=== PATIENT | female | born 1985 | race Caucasian/White ===

== ENCOUNTER → 2016-05-02 | Outpatient (CLI) | payer OTHER ==
[~2016-05-02] MED LIST: ALPR-411 PO; CARB1TAB38 PO; HYDR50CA2 PO; ONDA4TAB10 SL; ONDA4TAB46 PO
--- NOTE | 2016-05-03 17:58 | MOTOR CONDUCTION ---
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 EEG DIAGNOSIS: Essentially normal during wakefulness. DESCRIPTION OF TRACING: This EEG was done in the laboratory after the patient had 6 hours of sleep. A simultaneous video analysis of patient movement and behavior was obtained. Photic stimulation was performed. Hyperventilation was not. Drowsiness and light sleep are not recorded. Under these conditions, there is evidence for what appears to be normal background rhythm in the alpha range of up to 9-10 Hz of maximum frequency and of up to 40 microvolts of maximum amplitude. This is maximum posterior head regions bilaterally symmetrical. Polymorphic mid frequency theta activity of modest voltage is seen over all head regions without clear focal or regional predominance. Anterior head region maximum bilaterally symmetrical low voltage fast activity in the beta range is present. Photic stimulation provokes a modest driving response without a photomyogenic or photoparoxysmal component. At no time during the waking tracing is there evidence for potentially epileptogenic activity in the form of polyspike or spike wave bursts, focal sharp waves or focal spikes. INTERPRETATION: This electroencephalogram is essentially normal during wakefulness without evidence for focal or generalized encephalopathy and without evidence for potentially epileptogenic activity but the absence of the latter does not exclude the diagnosis of seizure disorder.
== END | disposition home or self-care (01) ==
LOC: C.NEUR 13:32
PROVIDERS: ATTEND Psychiatry & Neurology Neurology
DX: G40.109 Localization-related (focal) (partial) symptomatic epilepsy and epileptic syndromes with simple partial seizures, not intractable, without status epilepticus (principal)

== ENCOUNTER 2016-05-31 13:58 | Emergency (ER) | payer OTHER ==
[~2016-05-31] VITALS: Ht 165.1 cm; Wt 84.9 kg
[2016-05-31 14:14] VITALS: TEMP 37.2; Ht 165.1 cm; Wt 84.9 kg
[2016-05-31] MEDS ORDERED: SODIUM CHLORIDE 0.9% 1000ML 1,000 ML IV STA ×2 (14:36→15:58)
[2016-05-31] MEDS ORDERED: ONDANSETRON INJ 2 MG/ML 2 ML VIAL IV STA ×2 (14:36→18:02)
[2016-05-31 15:20] LABS: BASO % 0.1 %; BASO ABS # 0.01 K/uL (0-0.2); COMPLETE YES; EOS % 0.8 %; HEMATOCRIT 48.6 % (37-47); IG% 0.2 %; LYMPH ABS # 0.98 K/uL (1.2-3.4); MEAN CELL VOLUME 85.3 fL (80-100); MEAN CORPUSCULAR HEMOGLOBIN 30.5 pg (25-34); MEAN CORPUSCULAR HGB CONC 35.8 g/dl (32-36); MEAN PLATELET VOLUME 10.8 fL (7.4-10.4); MONO % 7.3 %; NEUT % 80.6 %; PLATELET COUNT 177 K/uL (130-400); WHITE BLOOD COUNT 8.91 K/uL (4.8-10.8)
--- NOTE | 2016-05-31 15:20 | EMERGENCY ROOM VISIT NOTE ---
History First contact with patient: 14:19 Chief Complaint: ABDOMINAL PAIN Stated Complaint: ABDOMINAL PAIN,VOMITTING,DIARRHEA, DIZZY History of Present Illness The patient is a 31 year old female who presents to the Emergency Room with complaints of nausea, vomiting, diarrhea, abdominal pain, cough and congestion for the past 3 days. She reports associated chills and fever up to 102 earlier today for which she took ibuprofen. She describes the diarrhea as watery, nonbloody, 9-10 times per hour, and worsened by any oral intake. She states she only had vomiting for the first day, but has remained very nauseated with some dry heaving yesterday and today, and is able to keep down some fluids. 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 She also reports history of frequent sinus infections and so she was treated for pneumonia 2 months ago with a Z-Eric. She denies any recent out of country travel, undercooked poultry or meats, well water or stream water intake. Review of Systems GENERAL: + fevers, chills, malaise. Denies weight loss. HEENT: Denies dizziness, visual problems, hearing loss, tinnitus. Denies difficulty swallowing or oral lesions. PULMONARY: + cough, congestion, dark green sputum. Denies, shortness of breath, or hemoptysis. CARDIOVASCULAR: Denies chest pain, palpitations, dyspnea on exertion, orthopnea or peripheral edema. GASTROINTESTINAL: + diarrhea, nausea, vomiting, abdominal pain. Denies hematochezia, bloody or bilious emesis, constipation. GENITOURINARY: Denies dysuria, frequency, urgency or nocturia. NEUROLOGIC: + history of epilepsy, Denies history of CVA, TIA or chronic headaches. MUSCULOSKELETAL: Denies history of joint tenderness/swelling. SKIN: Denies rashes or lesions. PSYCHIATRIC: Denies history of depression or mental illness. ENDOCRINE: Denies history of diabetes, thyroid disorders, abnormal hair growth or sexual dysfunction. HEMATOLOGIC: Social History Smoking Status: Current Some Day Smoker Current/Historical Medications Scheduled Carbamazepine Extended Release (Tegretol Xr), 400 MG PO TID Ondasetron Odt (Zofran Odt), 4 MG SL Q6H Allergies Coded Allergies: Acetaminophen (Unverified Allergy, Unknown, unknown, 05/31/16) Baclofen (Unverified Allergy, Unknown, unknown, 05/31/16) Chlorhexidine (Unverified Allergy, Unknown, unknown, 05/31/16) Gabapentin (Unverified Allergy, Unknown, unknown, 05/31/16) Penicillins (Unverified Allergy, Unknown, unknown, 05/31/16) Sulfa Antibiotics (Unverified Allergy, Unknown, unknown, 05/31/16) Tizanidine (Unverified Allergy, Unknown, unknown, 05/31/16) Physical Exam Vital Signs Date Time Temp Pulse Resp B/P Pulse Ox O2 Delivery O2 Flow Rate FiO2 05/31/16 18:05 96 20 111/72 98 Room Air 05/31/16 16:09 98 20 108/68 98 Room Air 05/31/16 14:14 37.2 116 18 110/75 98 Room Air Physical Exam CONSTITUTIONAL: Well appearing and well nourished. Moderately dehydrated. Alert and oriented X 4 with normal affect. HEENT: Normocephalic, atraumatic. Pupils equal, round and reactive to light, EOMI. TMs normal. Mucus membranes dry. NECK: Supple, full active range of motion without discomfort. RESPIRATORY: Clear to auscultation bilaterally with no wheezing, crackles, rhonchi or stridor. Equal expansion bilaterally. CARDIOVASCULAR: Tachycardia. Regular rhythm with no murmurs, rubs or gallops. Normal peripheral perfusion. No edema. GASTROINTESTINAL: Soft, nondistended. Mild diffuse tenderness in all quadrants , no rebound. Hyperactive bowel sounds. MUSCULOSKELETAL: Full range of motion of all joints without discomfort. INTEGUMENTARY: No rash or other significant dermatologic conditions noted. NEUROLOGIC: Cranial nerves II-XII grossly intact. No focal neurologic deficits noted. Medical Decision & Procedures ER Provider Diagnostic Interpretation: CHEST 2 VIEWS ROUTINE CLINICAL HISTORY: Cough and fever. COMPARISON STUDY: No previous studies for comparison. FINDINGS: Lung volumes are normal. Lungs are clear. There is no pneumothorax or pleural effusion. Cardiac size is normal. Mediastinal contours are normal. There is no evidence of pulmonary edema. IMPRESSION: No acute cardiopulmonary findings. Laboratory Results 05/31/16 14:10 Red Blood Count 5.70, Mean Corpuscular Volume 85.3, Mean Corpuscular Hemoglobin 30.5, Mean Corpuscular Hemoglobin Concent 35.8, Mean Platelet Volume 10.8, Neutrophils (%) (Auto) 80.6, Lymphocytes (%) (Auto) 11.0, Monocytes (%) (Auto) 7.3, Eosinophils (%) (Auto) 0.8, Basophils (%) (Auto) 0.1, Neutrophils # (Auto) 7.18, Lymphocytes # (Auto) 0.98, Monocytes # (Auto) 0.65, Eosinophils # (Auto) 0.07, Basophils # (Auto) 0.01 05/31/16 14:10 Test 05/31/16 14:10 05/31/16 17:15 White Blood Count 8.91 K/uL (4.8-10.8) Red Blood Count 5.70 M/uL (4.2-5.4) Hemoglobin 17.4 g/dL (12.0-16.0) Hematocrit 48.6 % (37-47) Mean Corpuscular Volume 85.3 fL (80-100) Mean Corpuscular Hemoglobin 30.5 pg (25-34) Mean Corpuscular Hemoglobin Concent 35.8 g/dl (32-36) Platelet Count 177 K/uL (130-400) Mean Platelet Volume 10.8 fL (7.4-10.4) Neutrophils (%) (Auto) 80.6 % Lymphocytes (%) (Auto) 11.0 % Monocytes (%) (Auto) 7.3 % Eosinophils (%) (Auto) 0.8 % Basophils (%) (Auto) 0.1 % Neutrophils # (Auto) 7.18 K/uL (1.4-6.5) Lymphocytes # (Auto) 0.98 K/uL (1.2-3.4) Monocytes # (Auto) 0.65 K/uL (0.11-0.59) Eosinophils # (Auto) 0.07 K/uL (0-0.5) Basophils # (Auto) 0.01 K/uL (0-0.2) RDW Standard Deviation 37.9 fL (36.4-46.3) RDW Coefficient of Variation 12.1 % (11.5-14.5) Immature Granulocyte % (Auto) 0.2 % Immature Granulocyte # (Auto) 0.02 K/uL (0.00-0.02) Anion Gap 6.0 mmol/L (3-11) Est Creatinine Clear Calc Drug Dose 96.2 ml/min Estimated GFR () 96.8 Estimated GFR (Non- 83.6 BUN/Creatinine Ratio 15.3 (10-20) Calcium Level 8.5 mg/dl (8.5-10.1) Total Bilirubin 0.3 mg/dl (0.2-1) Direct Bilirubin 0.1 mg/dl (0-0.2) Aspartate Amino Transf (AST/SGOT) 22 U/L (15-37) Alanine Aminotransferase (ALT/SGPT) 30 U/L (12-78) Alkaline Phosphatase 87 U/L (45-117) Total Protein 8.0 gm/dl (6.4-8.2) Albumin 4.1 gm/dl (3.4-5.0) Lipase 134 U/L (73-393) Urine Color DK YELLOW Urine Appearance CLEAR (CLEAR) Urine pH 5.5 (4.5-7.5) Urine Specific [place] 1.037 (1.000-1.030) Urine Protein 2+ (NEG) Urine Glucose (UA) NEG (NEG) Urine Ketones TRACE (NEG) Urine Occult Blood NEG (NEG) Urine Nitrite NEG (NEG) Urine Bilirubin NEG (NEG) Urine Urobilinogen NEG (NEG) Urine Leukocyte Esterase TRACE (NEG) Urine WBC (Auto) 1-5 /hpf (0-5) Urine RBC (Auto) 0-4 /hpf (0-4) Urine Hyaline Casts (Auto) 1-5 /lpf (0-5) Urine Epithelial Cells (Auto) >30 /lpf (0-5) Urine Bacteria (Auto) NEG (NEG) Urine Renal Epithelial Cells /lpf (0-5) Urine Pathogenic Casts /lpf (0) Urine Mucus PRESENT (NONE PRSENT) Urine Test NEG (NEG) Medications Administered Medications (Trade) Dose Ordered Sig/Debora Route Start Time Stop Time Status Last Admin Dose Admin Sodium Chloride (Nss 1000ml) 1,000 ml @ 999 mls/hr Q1H1M STAT IV 05/31/16 14:36 05/31/16 15:36 DC 05/31/16 15:30 999 MLS/HR Ondansetron HCl 4 mg 4 mg NOW STAT IV 05/31/16 14:36 05/31/16 14:42 DC 05/31/16 15:31 4 MG Sodium Chloride (Nss 1000ml) 1,000 ml @ 999 mls/hr Q1H1M STAT IV 05/31/16 15:58 05/31/16 16:58 DC 05/31/16 16:08 999 MLS/HR Ketorolac Tromethamine (Toradol Inj) 15 mg NOW STAT IV 05/31/16 18:02 05/31/16 18:04 DC 05/31/16 18:16 15 MG Ondansetron HCl (Zofran Inj) 4 mg NOW STAT IV 05/31/16 18:02 05/31/16 18:04 DC 05/31/16 18:16 4 MG Medical Decision Patient does appear moderately dehydrated on exam, with dry mucous membranes and is tachycardic. Labs show polycythemia and high specific gravity on UA with some ketones, also supporting some dehydration. Labs are otherwise unremarkable. Treated with IV Zofran for nausea, and 2 L of normal saline fluid bolus, with improvement in symptoms. She then has been asking for medication for headache, states she has previously been treated with Dilaudid and Toradol for migraines. I explained to her that Dilaudid was not an appropriate medication to treat headaches, but I did offer her a dose of Toradol prior to discharge, which she accepted. Patient improved after interventions, tolerating PO. Patient updated on all results and plan for discharge, instructed to follow up closely with her PCP, she verbalized understanding. Rx for PRN Zofran sent to pharmacy. Patient discussed with the attending physician, who agrees with my assessment and disposition. Impression Primary Impression: Dehydration, moderate Additional Impression: Nausea, vomiting, and diarrhea Departure Information Dispostion Home / Self-Care Condition GOOD Prescriptions Ondasetron Odt (ZOFRAN ODT) 4 Mg Tab 4 MG SL Q6H for Nausea, #6 TAB Prov: Alyssa Paredes CRNP 05/31/16 Referrals No Doctor, Assigned (PCP) Patient Instructions ED Dehydration, ED Food Poison Or Gastroenteritis, [facility] Additional Instructions Follow-up with her PCP in the next few days. Drink plenty of fluids to stay well hydrated. You may take the Zofran as needed for severe nausea/vomiting. He may take Tylenol or ibuprofen as needed for pain. Please return to the ER for worsening symptoms, including severe abdominal pain , vomiting blood, blood in the stool, severe dizziness or passing out, persistent fevers/chills, or any other concerns. Work Instructions Return To Work: 3 days Lifting Limitations: none Problem Qualifiers
[2016-05-31] MEDS ORDERED: CARB400T3 PO (15:33)
[2016-05-31 15:39] LABS: BUN/CREATININE RATIO 15.3 (10-20); CALCIUM 8.5 mg/dl (8.5-10.1); CREATININE 0.92 mg/dl (0.60-1.20)
--- NOTE | 2016-05-31 16:20 | DIAGNOSTIC IMAGING REPORT ---
CHEST 2 VIEWS ROUTINE CLINICAL HISTORY: Cough and fever. COMPARISON STUDY: No previous studies for comparison. FINDINGS: Lung volumes are normal. Lungs are clear. There is no pneumothorax or pleural effusion. Cardiac size is normal. Mediastinal contours are normal. There is no evidence of pulmonary edema. IMPRESSION: No acute cardiopulmonary findings. Electronically signed by: Lawrence Bhardwaj M.D. 05/31/2016 4:18 PM Dictated Date/Time: 05/31/2016 4:17 PM
[2016-05-31] MEDS ORDERED: KETOROLAC TROMETHAMINE 30 MG/ML VIAL IV STA (18:02)
[2016-05-31 18:05] VITALS: BP 111/72; PULSE 96; O2SAT 98
[2016-05-31 18:05] LABS: URINE APPEARANCE CLEAR (CLEAR); URINE COLOR DK YELLOW; URINE EPITHELIAL CELL AUTO >30 /lpf (0-5); URINE NITRITE NEG (NEG); URINE PH 5.5 (4.5-7.5); URINE SPECIFIC GRAVITY 1.037 (1.000-1.030); UROBILINOGEN NEG (NEG); ZZUR CULT IF INDIC CLEAN CATCH NO
[2016-05-31 18:06] LABS: MANUAL MICROSCOPIC REQUIRED? NO; REVIEW REQ? YES
[2016-05-31 18:08] LABS: URINE BILIRUBIN NEG (NEG)
[2016-05-31] MEDS ORDERED: ONDA4TAB10 SL (18:12)
[2016-05-31 18:14] LABS: URINE MUCUS PRESENT (NONE PRSENT)
[2016-06-07 10:21] LABS: O&P SOURCE OTHER-STOOL
== END 2016-05-31 18:30 | disposition home or self-care (01) ==
LOC: C.EDB 14:00
DX: E86.0 Dehydration (principal); R11.2 Nausea with vomiting, unspecified; R19.7 Diarrhea, unspecified; F17.210 Nicotine dependence, cigarettes, uncomplicated

== ENCOUNTER 2016-08-28 16:51 | Emergency (ER) | payer OTHER ==
[~2016-08-28] VITALS: Ht 165.1 cm; Wt 91.0 kg
[~2016-08-28 16:51] MED LIST changes: -ALPR-411 PO; -HYDR50CA2 PO; -ONDA4TAB46 PO
[2016-08-28 17:03] VITALS: TEMP 37; Ht 165.1 cm; Wt 91.0 kg
[2016-08-28] MEDS ORDERED: ONDANSETRON 8 MG/54 ML D5W IV STA (17:39)
[2016-08-28] MEDS ORDERED: SODIUM CHLORIDE 0.9% 1000ML 1,000 ML IV STA ×2 (17:39→20:37)
[2016-08-28 17:50] LABS: BASO % 0.1 %; BASO ABS # 0.01 K/uL (0-0.2); COMPLETE YES; EOS % 1.4 %; HEMATOCRIT 43.5 % (37-47); IG% 0.2 %; LYMPH % 7.5 %; LYMPH ABS # 0.78 K/uL (1.2-3.4); MEAN CORPUSCULAR HEMOGLOBIN 30.4 pg (25-34); MEAN CORPUSCULAR HGB CONC 35.4 g/dl (32-36); MEAN PLATELET VOLUME 10.4 fL (7.4-10.4); MONO % 4.1 %; NEUT % 86.7 %; PLATELET COUNT 210 K/uL (130-400); RED BLOOD COUNT 5.06 M/uL (4.2-5.4); WHITE BLOOD COUNT 10.37 K/uL (4.8-10.8)
[2016-08-28] MEDS ORDERED: ALPR-411 PO (17:52)
[2016-08-28] MEDS ORDERED: HYDR50CA2 PO (17:52)
[2016-08-28] MEDS ORDERED: DiphenhydrAMINE HCL 50 MG/ML VIAL IV STA (18:07)
[2016-08-28 18:09] LABS: BUN/CREATININE RATIO 22.3 (10-20); CALCIUM 8.5 mg/dl (8.5-10.1); CREATININE 0.88 mg/dl (0.60-1.20); POTASSIUM 4.1 mmol/L (3.5-5.1)
[2016-08-28 18:12] LABS: ALB/GLOB RATIO 1.2 (0.9-2)
--- NOTE | 2016-08-28 18:12 | DIAGNOSTIC IMAGING REPORT ---
PA CHEST WITH ABDOMINAL SERIES CLINICAL HISTORY: Nausea and vomiting. Diarrhea. FINDINGS: A PA chest radiograph is compared to study dated 05/31/2016. The cardiomediastinal silhouette is unremarkable. The lungs and pleural spaces are clear. No pneumothorax is seen. The bony thorax is grossly intact. Supine and erect abdominal radiographs are obtained. No prior studies are available for comparison at the time of dictation. Cholecystectomy clips are identified in the right upper quadrant. There is a nonobstructed abdominal bowel gas pattern. No evidence of intraperitoneal free air is seen. There are no abnormal abdominal calcifications. An intrauterine device is noted in the pelvis. Pelvic phleboliths are observed. The lumbosacral spine and bony pelvis appear intact. IMPRESSION: 1. No active disease in the chest. 2. Nonobstructed abdominal bowel gas pattern. Electronically signed by: Flo Mai M.D. 08/28/2016 6:10 PM Dictated Date/Time: 08/28/2016 6:09 PM
[2016-08-28 18:24] LABS: PREG INTERNAL NEGATIVE QC NEG CLEAR BACKGROUND; PREG INTERNAL POSITIVE QC POS CONTROL LINE
[2016-08-28] MEDS ORDERED: ACETAMINOPHEN 500 MG TAB PO STA (18:34)
[2016-08-28] MEDS ORDERED: KETOROLAC TROMETHAMINE 30 MG/ML VIAL IV STA (18:47)
[2016-08-28 19:07] LABS: URINE APPEARANCE CLEAR (CLEAR); URINE BILIRUBIN NEG (NEG); URINE COLOR YELLOW; URINE NITRITE NEG (NEG); URINE SPECIFIC GRAVITY 1.027 (1.000-1.030); UROBILINOGEN NEG (NEG); ZZUR CULT IF INDIC CLEAN CATCH NO
[2016-08-28 19:10] LABS: MANUAL MICROSCOPIC REQUIRED? NO; REVIEW REQ? NO
--- NOTE | 2016-08-28 19:11 | EMERGENCY ROOM VISIT NOTE ---
History Report prepared by Tami: Mathew Shepard Under the Supervision of: Dr. Hiwot Perea D.O. First contact with patient: 17:28 Chief Complaint: DIARRHEA Stated Complaint: BIG BITE/STING - NAUSEA, VOMITING,DIARREHA,DIZZY Nursing Triage Summary: Patient states she was stung by an insect yesterday states "I felt like my whole body was on fire" Patient having n/v/d all day today. Patient also c/o chills and headache History of Present Illness The patient is a 31 year old female who presents to the Emergency Room with complaints of a persistent illness beginning yesterday. She states that her symptoms began after she was bit by a bug yesterday on her left foot. She has a history of allergic reactions to bee stings and feels that she may have been stung by a bee. The patient's symptoms include vomiting, diarrhea, fatigue, weakness, chills, generalized itchiness, body pain, and headache. She states that she experienced chest pain and mild shortness of breath immediately following the bite yesterday. She has taken Benadryl for her symptoms. The patient denies any recent travel, straining, or injury. She notes that her son is in daycare and had an episode of vomiting a few days ago. She states that her symptoms felt somewhat different from a usual allergic reaction as her primary symptom associated with her previous allergic reactions is swelling of various body parts. Nothing has improved her symptoms. The patient states that she used a test today because she thought she may be . Source of History: patient Onset: Yesterday Quality: other (illness) Timing: other (persistent) Modifying Factors (Relieving): other (none) Associated Symptoms: + chills, + headache, + chest pain (resolved), + SOB ( resolved), + vomiting, + diarrhea, + weakness Note: The patient's symptoms include generalized itchiness, and body pain. Review of Systems See HPI for pertinent positives & negatives. A total of 10 systems reviewed and were otherwise negative. Past Medical & Surgical Medical Problems: (1) No Known Active Medical Problems Surgical Problems: (1) S/P cholecystectomy Family History No pertinent family history stated. Social History Smoking Status: Former Smoker Housing Status: lives with family Current/Historical Medications Scheduled Carbamazepine Extended Release (Tegretol Xr), 200 MG PO TID Hydroxyzine Pamoate (Vistaril), 50 MG PO HS Scheduled PRN Alprazolam (Xanax), 0.5 MG PO BID PRN for Anxiety/Agitation Ondansetron Hcl (Zofran), 4 MG PO Q8H PRN for Nausea Allergies Coded Allergies: Acetaminophen (Unverified Allergy, Unknown, unknown, 08/28/16) Baclofen (Unverified Allergy, Unknown, unknown, 08/28/16) Chlorhexidine (Unverified Allergy, Unknown, unknown, 08/28/16) Gabapentin (Unverified Allergy, Unknown, unknown, 08/28/16) Penicillins (Unverified Allergy, Unknown, unknown, 08/28/16) Sulfa Antibiotics (Unverified Allergy, Unknown, unknown, 08/28/16) Tizanidine (Unverified Allergy, Unknown, unknown, 08/28/16) Physical Exam Vital Signs Date Time Temp Pulse Resp B/P (MAP) Pulse Ox O2 Delivery O2 Flow Rate FiO2 08/28/16 22:20 81 18 115/68 99 08/28/16 20:40 82 18 109/64 98 Room Air 08/28/16 19:00 77 18 127/71 97 Room Air 08/28/16 17:03 37.0 83 20 128/80 96 Room Air Physical Exam GENERAL: alert, well appearing, well nourished, no distress, non-toxic EYE EXAM: normal conjunctiva, PERRL and EOM's grossly intact OROPHARYNX: no exudate, no erythema, lips, buccal mucosa, and tongue normal and mucous membranes are dry NECK: supple, no nuchal rigidity, no adenopathy, non-tender LUNGS: Clear to auscultation. Normal chest wall mechanics HEART: no murmurs, S1 normal and S2 normal ABDOMEN: abdomen soft, normo-active bowel sounds, no masses, no rebound or guarding. Mild generalized tenderness. BACK: Back is symmetrical on inspection and there is no deformity, no midline tenderness, no CVA tenderness. SKIN: no rashes and no bruising UPPER EXTREMITIES: upper extremities are grossly normal. LOWER EXTREMITIES: No pitting edema. Small sub-centimeter erythematous papules consistent with insect bites on her feet bilaterally. No signs of cellulitis, or ascending lymphangitis. No evidence of abscess. NEURO EXAM: Normal sensorium, cranial nerves II-XII grossly intact, normal speech, no gross weakness of arms, no gross weakness of legs. Medical Decision & Procedures ER Provider Diagnostic Interpretation: Radiology results have been interpreted by the radiologist and reviewed by me. PA CHEST WITH ABDOMINAL SERIES FINDINGS: A PA chest radiograph is compared to study dated 05/31/2016. The cardiomediastinal silhouette is unremarkable. The lungs and pleural spaces are clear. No pneumothorax is seen. The bony thorax is grossly intact. Supine and erect abdominal radiographs are obtained. No prior studies are available for comparison at the time of dictation. Cholecystectomy clips are identified in the right upper quadrant. There is a nonobstructed abdominal bowel gas pattern. No evidence of intraperitoneal free air is seen. There are no abnormal abdominal calcifications. An intrauterine device is noted in the pelvis. Pelvic phleboliths are observed. The lumbosacral spine and bony pelvis appear intact. IMPRESSION: 1. No active disease in the chest. 2. Nonobstructed abdominal bowel gas pattern. Electronically signed by: Flo Mai M.D. Laboratory Results 08/28/16 17:35 Red Blood Count 5.06, Mean Corpuscular Volume 86.0, Mean Corpuscular Hemoglobin 30.4, Mean Corpuscular Hemoglobin Concent 35.4, Mean Platelet Volume 10.4, Neutrophils (%) (Auto) 86.7, Lymphocytes (%) (Auto) 7.5, Monocytes (%) (Auto) 4.1, Eosinophils (%) (Auto) 1.4, Basophils (%) (Auto) 0.1, Neutrophils # (Auto) 8.98, Lymphocytes # (Auto) 0.78, Monocytes # (Auto) 0.43, Eosinophils # (Auto) 0.15, Basophils # (Auto) 0.01 08/28/16 17:35 Test 08/28/16 17:35 08/28/16 17:38 08/28/16 18:36 08/28/16 18:52 White Blood Count 10.37 K/uL (4.8-10.8) Red Blood Count 5.06 M/uL (4.2-5.4) Hemoglobin 15.4 g/dL (12.0-16.0) Hematocrit 43.5 % (37-47) Mean Corpuscular Volume 86.0 fL (80-100) Mean Corpuscular Hemoglobin 30.4 pg (25-34) Mean Corpuscular Hemoglobin Concent 35.4 g/dl (32-36) Platelet Count 210 K/uL (130-400) Mean Platelet Volume 10.4 fL (7.4-10.4) Neutrophils (%) (Auto) 86.7 % Lymphocytes (%) (Auto) 7.5 % Monocytes (%) (Auto) 4.1 % Eosinophils (%) (Auto) 1.4 % Basophils (%) (Auto) 0.1 % Neutrophils # (Auto) 8.98 K/uL (1.4-6.5) Lymphocytes # (Auto) 0.78 K/uL (1.2-3.4) Monocytes # (Auto) 0.43 K/uL (0.11-0.59) Eosinophils # (Auto) 0.15 K/uL (0-0.5) Basophils # (Auto) 0.01 K/uL (0-0.2) RDW Standard Deviation 37.8 fL (36.4-46.3) RDW Coefficient of Variation 12.0 % (11.5-14.5) Immature Granulocyte % (Auto) 0.2 % Immature Granulocyte # (Auto) 0.02 K/uL (0.00-0.02) Anion Gap 8.0 mmol/L (3-11) Est Creatinine Clear Calc Drug Dose 104.2 ml/min Estimated GFR () 102.2 Estimated GFR (Non- 88.2 BUN/Creatinine Ratio 22.3 (10-20) Calcium Level 8.5 mg/dl (8.5-10.1) Total Bilirubin 0.6 mg/dl (0.2-1) Aspartate Amino Transf (AST/SGOT) 16 U/L (15-37) Alanine Aminotransferase (ALT/SGPT) 24 U/L (12-78) Alkaline Phosphatase 65 U/L (45-117) Total Protein 7.6 gm/dl (6.4-8.2) Albumin 4.2 gm/dl (3.4-5.0) Globulin 3.4 gm/dl (2.5-4.0) Albumin/Globulin Ratio 1.2 (0.9-2) Lipase 142 U/L (73-393) Human Chorionic Gonadotropin, Qual NEG (NEG) Lactic Acid Level 1.0 mmol/L (0.4-2.0) Urine Color YELLOW Urine Appearance CLEAR (CLEAR) Urine pH 6.0 (4.5-7.5) Urine Specific [place] 1.027 (1.000-1.030) Urine Protein NEG (NEG) Urine Glucose (UA) NEG (NEG) Urine Ketones NEG (NEG) Urine Occult Blood NEG (NEG) Urine Nitrite NEG (NEG) Urine Bilirubin NEG (NEG) Urine Urobilinogen NEG (NEG) Urine Leukocyte Esterase NEG (NEG) Laboratory results per my review. Medications Administered Medications (Trade) Dose Ordered Sig/Debora Route Start Time Stop Time Status Last Admin Dose Admin Sodium Chloride 1,000 ml @ 999 mls/hr Q1H1M STAT IV 08/28/16 17:39 08/28/16 18:39 DC 08/28/16 17:39 999 MLS/HR Ondansetron HCl (Zofran 8mg Iv) 8 mg NOW STAT IV 08/28/16 17:39 08/28/16 17:41 DC 08/28/16 17:47 8 MG Diphenhydramine HCl (Benadryl Inj) 25 mg NOW STAT IV 08/28/16 18:07 08/28/16 18:08 DC 08/28/16 18:14 25 MG Ketorolac Tromethamine (Toradol Inj) 30 mg NOW STAT IV 08/28/16 18:47 08/28/16 18:48 DC 08/28/16 19:01 30 MG Dicyclomine HCl (Bentyl Tab) 20 mg NOW STAT PO 08/28/16 20:10 08/28/16 20:12 DC 08/28/16 20:35 20 MG Promethazine HCl 12.5 mg/Sodium Chloride 50.5 ml @ 204 mls/hr NOW STAT IV 08/28/16 20:10 08/28/16 20:24 DC 08/28/16 20:41 204 MLS/HR Sodium Chloride 1,000 ml @ 999 mls/hr Q1H1M STAT IV 08/28/16 20:37 08/28/16 21:37 DC 08/28/16 20:49 999 MLS/HR ED Course 1731: The patient was evaluated in room C4. A complete history and physical exam was performed. 1739: Ordered Zofran 8 mg IV, Sodium Chloride 1000 ml @ 999 mls/hr IV. 1807: Ordered Benadryl Inj 25 mg IV. 1833: Ordered Tylenol Tab 1000 mg PO. 1846: Ordered Toradol Inj 30 mg IV. 1935: I reassessed the patient. She is still feeling nauseous. 2009: Ordered Promethazine HCl 12.5/Sodium Chloride 50.5 ml @ 204 mls/hr IV, Bentyl Tab 20 mg PO. 2036: Ordered Sodium Chloride 1000 ml @ 999 mls/hr IV. 2204: Upon reevaluation, the patient is feeling better. I discussed the findings and the treatment plan with the patient. She verbalizes agreement and understanding. She was discharged home. Medical Decision Differential diagnosis: Etiologies such as gastroenteritis, food borne illness, infections, appendicitis , diverticulitis, inflammatory bowel disease, obstruction, GI bleed, biliary pathology, as well as others were entertained. Symptoms today more likely related to viral syndrome and sick contacts. I do not suspect the patient's GI symptoms today were related to a minor bite on the foot yesterday. Patient with no other symptoms of systemic allergic reaction. Doubt anaphylaxis. Patient improved here and had no episodes here vomiting and diarrhea. Labs reassuring, and imaging reassuring, did not feel patient warranted additional abdominal imaging at this time given improvement in condition. Patient with mild persistent nausea but was tolerating by mouth by time of discharge and felt improved enough to go home. Did not feel patient had a significant envenomation as a result of what appear to be mild and typical insect bites to her toes bilaterally. Doubt additional GI pathology including perforation, GI bleed, mesenteric ischemia, bowel obstruction, colitis. Patient's vital signs reassuring. Patient well-appearing at time of discharge. [place] Drug Monitoring Program Search Results: patient reviewed within database, no issues identified, see additional documentation Drug Monitoring Findings: The patient had one prescription for Xanax this month. Medication Reconcilliation Current Medication List: was personally reviewed by me Blood Pressure Screening Patient's blood pressure: Elevated blood pressure Blood pressure disposition: Elevated BP felt to be situational Impression Primary Impression: Vomiting and diarrhea Additional Impressions: Dehydration Insect bite Scribe Attestation The scribe's documentation has been prepared under my direction and personally reviewed by me in its entirety. I confirm that the note above accurately reflects all work, treatment, procedures, and medical decision making performed by me. Departure Information Dispostion Home / Self-Care Prescriptions Ondansetron Hcl (ZOFRAN) 4 Mg Tab 4 MG PO Q8H Y for Nausea, #20 TAB Prov: Brit Hiwot S., DO 08/28/16 Referrals No Doctor, Assigned (PCP) Patient Instructions My [facility] Additional Instructions Please continue regular medications as prescribed. Please sip clear liquids at frequent intervals to stay well-hydrated. Please eat a bland diet as tolerated until you're feeling better. You may use the nausea medication as prescribed. Please continue to monitor the area of your prior inset bite for any changes including increased redness, swelling, or pain. If you develop any recurrent vomiting or diarrhea, develop fevers, redness or swelling from the area of insect bite, dizziness or feel as though you're going to pass out, or you have any other new or concerning symptoms, please return the emergency room. Problem Qualifiers Additional Impressions: Insect bite Encounter type: initial encounter Qualified Codes: W57.XXXA - Bitten or stung by nonvenomous insect and other nonvenomous arthropods, initial encounter
[2016-08-28] MEDS ORDERED: DICYCLOMINE HCL 20 MG TAB PO STA (20:10)
[2016-08-28] MEDS ORDERED: PROMETHAZINE HCL INJ 12.5 MG in SODIUM CHLORIDE 0.9% 50ML 50 ML IV STA (20:10)
[2016-08-28] MEDS ORDERED: ONDA4TAB46 PO (21:10)
[2016-08-28 22:20] VITALS: BP 115/68; PULSE 81; O2SAT 99
== END 2016-08-28 22:20 | disposition home or self-care (01) ==
LOC: C.EDB 16:54 → C.EDC 22:20
DX: R11.10 Vomiting, unspecified (principal); R19.7 Diarrhea, unspecified; E86.0 Dehydration; S90.862A Insect bite (nonvenomous), left foot, initial encounter; W57.XXXA Bitten or stung by nonvenomous insect and other nonvenomous arthropods, initial encounter; Z79.899 Other long term (current) drug therapy; Z87.891 Personal history of nicotine dependence

== ENCOUNTER 2017-01-15 08:53 | Emergency (ER) | payer OTHER ==
[~2017-01-15] VITALS: Ht 165.1 cm; Wt 94.0 kg
[~2017-01-15 08:53] MED LIST changes: +ALPR-411 PO; -CARB1TAB38 PO; +CARB400T3 PO; +HYDR50CA2 PO; -ONDA4TAB10 SL; +ONDA4TAB46 PO
[2017-01-15 08:55] VITALS: TEMP 37; Ht 165.1 cm; Wt 94.0 kg
[2017-01-15 09:29] LABS: URINE APPEARANCE CLOUDY (CLEAR); URINE COLOR DK YELLOW; URINE EPITHELIAL CELL AUTO >30 /lpf (0-5); URINE NITRITE NEG (NEG); URINE PH 5.5 (4.5-7.5); URINE SPECIFIC GRAVITY 1.042 (1.000-1.030); UROBILINOGEN NEG (NEG)
[2017-01-15 09:30] LABS: MANUAL MICROSCOPIC REQUIRED? NO; REVIEW REQ? NO
[2017-01-15 09:31] LABS: URINE BILIRUBIN NEG (NEG)
[2017-01-15] MEDS ORDERED: CARB1CAP3 PO (09:35)
[2017-01-15] MEDS ORDERED: IBUP-1428 PO (09:35)
[2017-01-15] MEDS ORDERED: METH-307 PO ×2 (09:35→12:57)
[2017-01-15] MEDS ORDERED: ONDANSETRON INJ 2 MG/ML 2 ML VIAL IV STA ×2 (10:08→12:29)
[2017-01-15] MEDS ORDERED: KETOROLAC TROMETHAMINE 30 MG/ML VIAL IV STA (10:08)
[2017-01-15] MEDS ORDERED: MoRPHine SULFATE 4 MG/ML 1 ML CARP\\VIAL IV STA (10:08)
--- NOTE | 2017-01-15 11:38 | DIAGNOSTIC IMAGING REPORT ---
L-SPINE MIN 4 VIEWS ROUTINE CLINICAL HISTORY: 31 years-old Female presenting with EVAL BACK/LEG PAIN. TECHNIQUE: Frontal, bilateral oblique, lateral, and lateral views of the lumbar spine were obtained. COMPARISON: Plain radiographs of the abdomen from 08/28/2016. FINDINGS: No scoliosis. Normal lumbar lordosis. Vertebral bodies maintain normal height and alignment. Mild intervertebral disc height loss suggested at L5-S1. The remainder of the intervertebral disc spaces are preserved. No advanced degenerative change. No radiographic evidence of compression fracture or subluxation. No gross evidence of osseous neural foraminal narrowing. No pars defect is radiographically apparent. Moderate stool burden. Cholecystectomy clips. IMPRESSION: 1. Mild intervertebral disc height loss suggested at L5-S1. Otherwise normal lumbar spine. 2. Moderate stool burden, which suggests constipation. Electronically signed by: [place] Grady M.D. 01/15/2017 11:37 AM Dictated Date/Time: 01/15/2017 11:34 AM
[2017-01-15] MEDS ORDERED: MoRPHine SULFATE 10 MG/ML CARP/VIAL IV STA (12:27)
[2017-01-15] MEDS ORDERED: DEXAMETHASONE SOD INJ 4 MG/ML VIAL IV STA (12:27)
[2017-01-15] MEDS ORDERED: HYDR-5688 PO (12:57)
[2017-01-15] MEDS ORDERED: METH4PAK PO (12:57)
[2017-01-15] MEDS ORDERED: IBUP-1451 PO (12:57)
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
[2017-01-15 13:27] VITALS: BP 109/69; PULSE 68; O2SAT 99
[2017-01-15] MEDS ORDERED: OXYC1TAB3 PO (13:36)
== END 2017-01-15 13:46 | disposition home or self-care (01) ==
LOC: C.EDB 08:55 → C.EDA 13:46
DX: M54.16 Radiculopathy, lumbar region (principal); Z90.49 Acquired absence of other specified parts of digestive tract

== ENCOUNTER → 2017-01-24 | Outpatient (CLI) | payer OTHER ==
[~2017-01-24] MED LIST changes: -ALPR-411 PO; +CARB1CAP3 PO; -CARB400T3 PO; +IBUP-1428 PO; +IBUP-1451 PO; +METH-307 PO; +METH4PAK PO; -ONDA4TAB46 PO; +OXYC1TAB3 PO
--- NOTE | 2017-01-24 15:01 | DIAGNOSTIC IMAGING REPORT ---
MRI LUMBAR SPINE W/O CONTRAST CLINICAL HISTORY: CHRONIC LOW BACK PAIN,HX OF HERNIATED DISCS TECHNIQUE: Sagittal and axial T1, T2 and STIR images were obtained. COMPARISON STUDY: Conventional radiographic study dated 01/15/2017 OBSERVATIONS: The vertebral bodies and posterior elements appear intact. There is no abnormal bony signal present to suggest a marrow replacement process. L1-2: No disc protrusions or extrusions. No evidence of spinal canal or neural foraminal compromise. L2-3: There is a small left paracentral disc protrusion with mild deformity of the anterior thecal sac. There is no significant foraminal narrowing L3-4: There is a mild circumferential disc bulge. There is no significant spinal or foraminal stenosis L4-5: There is an annular fissure. There is a tiny central disc protrusion. There is no significant spinal or foraminal stenosis. L5-S1: There is a small to moderate central disc protrusion. There is minimal deformity anterior thecal sac. There is no significant foraminal narrowing The conus medullaris and cauda equina appear normal. IMPRESSION: 1. Small left paracentral disc protrusion at the L2-3 level with mild secondary deformity of thecal sac 2. Tiny central disc protrusion at the L4-5 level 3. Small to moderate central disc protrusion at the L5-S1 level with minimal secondary deformity of the thecal sac. Electronically signed by: Byron Segura M.D. 01/24/2017 3:00 PM Dictated Date/Time: 01/24/2017 2:55 PM
== END | disposition home or self-care (01) ==
LOC: C.MRI 13:27
PROVIDERS: ATTEND Internal Medicine
DX: M54.41 Lumbago with sciatica, right side (principal); R93.7 Abnormal findings on diagnostic imaging of other parts of musculoskeletal system

== ENCOUNTER 2017-02-25 10:16 | Emergency (ER) | payer OTHER ==
[~2017-02-25] VITALS: Ht 165.1 cm; Wt 104.5 kg
[~2017-02-25 10:16] MED LIST changes: -METH4PAK PO
[2017-02-25] MEDS ORDERED: KETOROLAC TROMETHAMINE 30 MG/ML VIAL IV STA (11:11)
[2017-02-25] MEDS ORDERED: SODIUM CHLORIDE 0.9% 1000ML 1,000 ML IV STA ×2 (11:11→13:03)
[2017-02-25] MEDS ORDERED: ALBUT/IPRATROP 3MG/0.5MG NEB 3 ML VIAL INH STA (11:11)
[2017-02-25 11:16] VITALS: Ht 165.1 cm; Wt 104.5 kg
--- NOTE | 2017-02-25 11:29 | EMERGENCY ROOM VISIT NOTE ---
History First contact with patient: 11:02 Chief Complaint: FLU LIKE SX Stated Complaint: SOB W DIFFICULTY, EAR /FACE PAIN,FATIGUE, FEVER, I History of Present Illness The patient is a 31 year old female who presents to the Emergency Room with complaints of flulike symptoms including cough, congestion, headaches and body aches, fevers and chills. She states her symptoms started 3 days ago but got worse yesterday into today. She has been taking ibuprofen for her symptoms with some relief, last dose was early this morning. She reports that her cough has been bothering her the most today, she feels chest tightness and like it is hard to breathe, and states this is similar to previous episodes of bronchitis, to which she states she is prone. She is a former smoker, quit 1 year ago. She reports a history of asthma as a child, and states she sometimes has issues with asthma-like symptoms when she gets sick, but does not take any medications or inhalers on a routine basis. She denies any vision changes, sore throat, ear pain, neck pain or stiffness, difficulty swallowing, abdominal pain, nausea or vomiting, diarrhea, bloody or black stools, urinary symptoms, abnormal vaginal bleeding or discharge, or rash. Review of Systems A complete 10 point review of systems was reviewed with the patient with pertinent positives and negatives as per history of present illness. All else were negative. Past Medical/Surgical History Medical Problems: (1) Asthma (2) Dehydration (3) Dehydration, moderate (4) Insect bite (5) Nausea, vomiting, and diarrhea (6) No Known Active Medical Problems (7) Vomiting and diarrhea Surgical Problems: (1) S/P cholecystectomy Social History Smoking Status: Former Smoker Housing Status: lives with family Current/Historical Medications Scheduled Carbamazepine (Tegretol Xr), 400 MG PO TID Hydroxyzine Pamoate (Vistaril), 50 MG PO HS Prednisone (Prednisone), 50 MG PO DAILY Scheduled PRN Ibuprofen Tab (Motrin), 800 MG PO TIDM PRN for Pain Methocarbamol (Robaxin), 750 MG PO TID PRN for Muscle Spasms Allergies Reviewed in chart Physical Exam Vital Signs Date Time Temp Pulse Resp B/P (MAP) Pulse Ox O2 Delivery O2 Flow Rate FiO2 02/25/17 15:05 37.2 85 15 138/69 97 02/25/17 14:40 138/69 02/25/17 14:11 85 15 97 02/25/17 13:41 88 16 100 02/25/17 13:11 72 99 02/25/17 13:06 114/55 02/25/17 12:43 82 22 98 Room Air 02/25/17 12:21 83 17 100 02/25/17 12:16 78 16 97 02/25/17 12:06 128/77 02/25/17 11:59 139/91 02/25/17 11:56 97 Room Air 02/25/17 11:52 97 Room Air 02/25/17 11:46 83 20 02/25/17 11:28 70 02/25/17 11:27 122/73 02/25/17 10:30 37.2 74 20 144/82 98 Room Air Physical Exam CONSTITUTIONAL: Pleasant and cooperative. No acute distress, but appears uncomfortable on exam. Mildly dehydrated, but otherwise well appearing and well nourished. HEENT: Normocephalic, atraumatic. Pupils equal, round and reactive to light, EOMI. TMs normal. Pharynx normal. Tacky mucous membranes. NECK: Supple, full active range of motion without discomfort. RESPIRATORY: Inspiratory and neck 3 wheezing throughout the lungs on auscultation, diminished in the bases. No crackles, rhonchi or stridor. Able to speak in full sentences. Not tachypneic. No use of accessory muscles. Equal expansion bilaterally. CARDIOVASCULAR: Regular rate and rhythm with no murmurs, rubs or gallops. Normal peripheral perfusion. No edema. GASTROINTESTINAL: Soft, nontender, nondistended. No palpable masses or HSM. Bowel sounds present in all quadrants. MUSCULOSKELETAL: Full range of motion of all joints without discomfort. INTEGUMENTARY: No rash or other significant dermatologic conditions noted. NEUROLOGIC: Alert and oriented X 4 with normal affect. Cranial nerves II-XII grossly intact. No focal neurologic deficits noted. Normal strength and sensation in all 4 extremities. Normal speech. Normal gait observed. Medical Decision & Procedures ER Provider Diagnostic Interpretation: CHEST 2 VIEWS ROUTINE HISTORY: 31 years-old Female EVALUATE RESPIRATORY DISTRESS.DYSPNEA acute respiratory distress COMPARISON: Acute abdominal series radiographs 08/28/2016 TECHNIQUE: PA and lateral views of the chest FINDINGS: Cardiomediastinal and hilar silhouettes are within normal limits. No pneumothorax, pleural effusion, focal airspace consolidation or overt pulmonary edema. Bones of the chest appear grossly intact. Cholecystectomy clips noted. IMPRESSION: No acute process. Laboratory Results 02/25/17 11:50 Red Blood Count 4.61, Mean Corpuscular Volume 85.9, Mean Corpuscular Hemoglobin 29.7, Mean Corpuscular Hemoglobin Concent 34.6, Mean Platelet Volume 10.6, Neutrophils (%) (Auto) 56.0, Lymphocytes (%) (Auto) 30.4, Monocytes (%) (Auto) 7.4, Eosinophils (%) (Auto) 5.8, Basophils (%) (Auto) 0.2, Neutrophils # (Auto) 4.50, Lymphocytes # (Auto) 2.45, Monocytes # (Auto) 0.60, Eosinophils # (Auto) 0.47, Basophils # (Auto) 0.02 02/25/17 11:50 Test 02/25/17 11:50 White Blood Count 8.06 K/uL (4.8-10.8) Red Blood Count 4.61 M/uL (4.2-5.4) Hemoglobin 13.7 g/dL (12.0-16.0) Hematocrit 39.6 % (37-47) Mean Corpuscular Volume 85.9 fL (80-100) Mean Corpuscular Hemoglobin 29.7 pg (25-34) Mean Corpuscular Hemoglobin Concent 34.6 g/dl (32-36) Platelet Count 188 K/uL (130-400) Mean Platelet Volume 10.6 fL (7.4-10.4) Neutrophils (%) (Auto) 56.0 % Lymphocytes (%) (Auto) 30.4 % Monocytes (%) (Auto) 7.4 % Eosinophils (%) (Auto) 5.8 % Basophils (%) (Auto) 0.2 % Neutrophils # (Auto) 4.50 K/uL (1.4-6.5) Lymphocytes # (Auto) 2.45 K/uL (1.2-3.4) Monocytes # (Auto) 0.60 K/uL (0.11-0.59) Eosinophils # (Auto) 0.47 K/uL (0-0.5) Basophils # (Auto) 0.02 K/uL (0-0.2) RDW Standard Deviation 38.0 fL (36.4-46.3) RDW Coefficient of Variation 12.2 % (11.5-14.5) Immature Granulocyte % (Auto) 0.2 % Immature Granulocyte # (Auto) 0.02 K/uL (0.00-0.02) Anion Gap 6.0 mmol/L (3-11) Est Creatinine Clear Calc Drug Dose 126.5 ml/min Estimated GFR () 118.2 Estimated GFR (Non- 102.0 BUN/Creatinine Ratio 16.7 (10-20) Calcium Level 8.5 mg/dl (8.5-10.1) Total Bilirubin 0.3 mg/dl (0.2-1) Aspartate Amino Transf (AST/SGOT) 18 U/L (15-37) Alanine Aminotransferase (ALT/SGPT) 30 U/L (12-78) Alkaline Phosphatase 75 U/L (45-117) Total Protein 7.0 gm/dl (6.4-8.2) Albumin 3.6 gm/dl (3.4-5.0) Globulin 3.4 gm/dl (2.5-4.0) Albumin/Globulin Ratio 1.1 (0.9-2) Medications Administered Medications (Trade) Dose Ordered Sig/Debora Route Start Time Stop Time Status Last Admin Dose Admin Albuterol/ Ipratropium (Duoneb) 3 ml NOW STAT INH 02/25/17 11:11 02/25/17 11:15 DC 02/25/17 11:58 3 ML Sodium Chloride 1,000 ml @ 999 mls/hr Q1H1M STAT IV 02/25/17 11:11 02/25/17 12:11 DC 02/25/17 11:56 999 MLS/HR Ketorolac Tromethamine (Toradol Inj) 15 mg NOW STAT IV 02/25/17 11:11 02/25/17 11:15 DC 02/25/17 11:57 15 MG Lorazepam (Ativan Inj) 0.5 mg NOW STAT IV 02/25/17 12:28 02/25/17 12:29 DC 02/25/17 12:56 0.5 MG Albuterol/ Ipratropium (Duoneb) 12 ml ONE ONCE INH 02/25/17 12:30 02/25/17 12:31 DC 02/25/17 12:42 12 ML Sodium Chloride 1,000 ml @ 999 mls/hr Q1H1M STAT IV 02/25/17 13:03 02/25/17 14:03 DC 02/25/17 13:10 999 MLS/HR Albuterol (Ventolin Hfa Inhaler) 2 puffs NOW ONCE INH 02/25/17 14:30 02/25/17 14:31 DC 02/25/17 14:52 2 PUFFS Prednisone (PredniSONE TAB) 60 mg NOW STAT PO 02/25/17 14:28 02/25/17 14:31 DC 02/25/17 14:50 60 MG ECG Indication: chest pain Rate (beats per minute): 75 Rhythm: normal sinus Findings: no acute ischemic change, no ectopy Comparison ECG Date: no prior available Medical Decision CC: Patient presenting with complaint of flulike symptoms, cough and shortness of breath Interpretation of Labs: No leukocytosis, no anemia, no significant electrolyte abnormalities, normal renal function, normal liver enzymes. Differential Diagnosis: Includes, but not limited to influenza, viral URI, bronchitis, pneumonia, asthma exacerbation, COPD, dehydration, electrolyte abnormality, anxiety, among others. Medication Reconciliation: I attest that I have personally reviewed the patient' s current medication list. Initial vital signs review: I reviewed the patient's vital signs and interpret them as follows: T: Afebrile; BP: Hypertensive; HR: Within normal limits; RR : Within normal limits; Pulse Ox: Within normal limits on room air. Blood pressure screening: The patient was found to have an elevated blood pressure, this was felt to be situational. Summary: Patient was evaluated at bedside, history and physical exam performed. Patient is alert and oriented, no acute distress, but does appear uncomfortable throughout exam. She also complains of feeling anxious and is tearful at times. She is huddled under several blankets on the stretcher. She is noted to be afebrile at this time. Mildly dehydrated on exam. On lung exam, the patient has diffuse inspiratory next 20 wheezes throughout, diminished in the bases. Orders were placed at bedside for labs, UA and urine , IV fluids for hydration, DuoNeb treatment for wheezing, chest x-ray to evaluate for pneumonia. Patient discussed with Dr. Rodas, who agrees with my assessment and plan. Labs reviewed as above, no acute abdomen is. Patient did not provide a urine sample. Chest x-ray reviewed, no acute abnormalities, specifically no pneumonia. Nursing staff did notify me that the patient was feeling increasingly anxious, asking for something to treat this. She is also complaining of chest pain and a worsening headache. Nursing staff performed an EKG due to the complaint of chest pain, I reviewed this and it shows NSR with no acute ischemic changes by my read. I reexamined the patient. Her lungs sound slightly improved after the DuoNeb, however she continues to have diffuse wheezing. Hour-long neb ordered and she was given a dose of oral prednisone. IV Ativan was ordered for the patient's anxiety, and comfort measures including cool compresses, turning down the lights, turning off the TV, and asking visitors to leave. Patient reassessed multiple times throughout ED stay, she reports her symptoms are much improved after IV fluids and medications, her anxiety is also much better. Her headache and chest pain are also resolved after ativan. Her wheezing is much improved, and she is breathing more comfortably. Sats remain within normal limits. Patient was provided with an albuterol inhaler and spacer to use at home, she was instructed in its use. Rx for prednisone burst sent to pharmacy. The patient was updated on all results and plan for discharge, she was encouraged to follow closely with her primary care provider for symptoms persist. She was also given strict return precautions should her symptoms worsen in any way, she verbalized understanding. Patient was discharged home in stable condition and ambulatory. Impression Primary Impression: Influenza-like symptoms Additional Impression: Acute bronchitis Departure Information Dispostion Home / Self-Care Condition GOOD Prescriptions Prednisone (Prednisone) 50 Mg Tab 50 MG PO DAILY for 4 Days, #4 TAB Prov: Alyssa Paredes CRNP 02/25/17 Referrals Oneyda Cadena D.O. (PCP) Patient Instructions ED Bronchitis Asthmatic, ED Flu, [facility] Additional Instructions You have been evaluated in the emergency department for your cough, wheezing, and flu-like symptoms. You most likely have influenza or some other viral process that is causing your symptoms. Your symptoms should be improved after 7 -10 days, but may last up to 14 days. A cough from bronchitis may last as long as 4-6 weeks. There is no evidence of pneumonia on your chest x-ray. You have been prescribed prednisone, which is a steroid, to help treat the inflammation in your lungs causing your bronchitis. Take as prescribed. Use the albuterol inhaler with spacer TWO puffs every 4 hours as needed for cough, wheezing, chest tightness. You should also use this before bed to help prevent coughing so that you can sleep better at night. For fevers or pain, you can use the following [id number] medicines (if > 12 yo): - Regular strength (325mg/tab) Tylenol (acetaminophen) 2 tabs every 4-6 hours as needed. Do not exceed 10 tablets in a 24 hour period. Avoid taking more than 3000 mg of Tylenol per day. This includes any other sources of acetaminophen you may take on a regular basis. - Regular strength (200 mg/tab) Advil (ibuprofen) 3 tabs every 6-8 hours as needed. Do not exceed a dose of 2400 mg per day. - For best results, alternate dosing of Tylenol and Advil every 3-4 hours. Drink plenty of fluids to stay well hydrated. - Water is the IDEAL replacement for lost fluids. You should initially sip at the water to help facilitate increased intestinal absorption rate and to decrease the possibility of nausea/vomiting. - Carbohydrate/Electrolyte-Containing Drinks (i.e. Gatorade, Powerade, Pedialyte). All of these are good choices, but it is important to remember that all of these drinks contain a high concentration of sugar. - Popsicles, ice chips, and fruit juices are all other options. - My FAVORITE dehydration remedy is to mix a 1:1 solution of bottled Gatorade with bottled water. This dilution allows for a palatable flavor with added benefit of a reduction in the amount of sugar consumption. As with all Emergency Department visits, you should follow-up with your Primary Care Provider in 2-3 days for reevaluation. Please return to the emergency department for any worsening symptoms, including difficulty breathing, chest pain, coughing up blood, severe dizziness or passing out, confusion, severe headache, or any other concerns. Work Instructions Return To Work: 2 days Problem Qualifiers Additional Impression: Acute bronchitis Bronchitis organism: unspecified organism Qualified Codes: J20.9 - Acute bronchitis, unspecified
[2017-02-25 11:56] VITALS: O2SAT 97
[2017-02-25 12:20] LABS: BASO % 0.2 %; BASO ABS # 0.02 K/uL (0-0.2); EOS % 5.8 %; EOS ABS # 0.47 K/uL (0-0.5); HEMATOCRIT 39.6 % (37-47); HEMOGLOBIN 13.7 g/dL (12.0-16.0); IG# 0.02 K/uL (0.00-0.02); LYMPH % 30.4 %; LYMPH ABS # 2.45 K/uL (1.2-3.4); MEAN CELL VOLUME 85.9 fL (80-100); MEAN CORPUSCULAR HEMOGLOBIN 29.7 pg (25-34); MEAN CORPUSCULAR HGB CONC 34.6 g/dl (32-36); MEAN PLATELET VOLUME 10.6 fL (7.4-10.4); MONO % 7.4 %; PLATELET COUNT 188 K/uL (130-400); RED CELL DISTRIBUTION WIDTH CV 12.2 % (11.5-14.5); WHITE BLOOD COUNT 8.06 K/uL (4.8-10.8)
[2017-02-25] MEDS ORDERED: LORAZEPAM 2 MG/ML 1 ML VIAL IV STA (12:28)
[2017-02-25] MEDS ORDERED: ALBUT/IPRATROP 3MG/0.5MG NEB 3 ML VIAL INH ONE (12:30)
[2017-02-25 12:37] LABS: ALBUMIN 3.6 gm/dl (3.4-5.0); CALCIUM 8.5 mg/dl (8.5-10.1); CREATININE 0.78 mg/dl (0.60-1.20)
[2017-02-25 12:43] VITALS: PULSE 82; O2SAT 98
--- NOTE | 2017-02-25 13:03 | DIAGNOSTIC IMAGING REPORT ---
CHEST 2 VIEWS ROUTINE HISTORY: 31 years-old Female EVALUATE RESPIRATORY DISTRESS.DYSPNEA acute respiratory distress COMPARISON: Acute abdominal series radiographs 08/28/2016 TECHNIQUE: PA and lateral views of the chest FINDINGS: Cardiomediastinal and hilar silhouettes are within normal limits. No pneumothorax, pleural effusion, focal airspace consolidation or overt pulmonary edema. Bones of the chest appear grossly intact. Cholecystectomy clips noted. IMPRESSION: No acute process. The above report was generated using voice recognition software. It may contain grammatical, syntax or spelling errors. Electronically signed by: Ivan Sánchez M.D. 02/25/2017 1:02 PM Dictated Date/Time: 02/25/2017 1:01 PM
[2017-02-25] MEDS ORDERED: ALBUTEROL HFA 8 GM INHALER INH ONE (14:30)
[2017-02-25] MEDS ORDERED: PRED50TA PO (14:39)
[2017-02-25 15:05] VITALS: BP 138/69; PULSE 85; TEMP 37.2; O2SAT 97
--- NOTE | 2017-02-25 18:30 | EMERGENCY ROOM VISIT NOTE ---
ED Visit Note First contact with patient: 11:02 I have personally evaluated and examined this patient. I agree with assessment and plan of Alyssa Paredes NP.
== END 2017-02-25 15:06 | disposition home or self-care (01) ==
LOC: C.EDB 10:18 → C.EDC 15:06
DX: J20.9 Acute bronchitis, unspecified (principal); F41.9 Anxiety disorder, unspecified; Z87.891 Personal history of nicotine dependence

== ENCOUNTER 2017-03-12 14:46 | Emergency (ER) | payer OTHER ==
[~2017-03-12] VITALS: Ht 165.1 cm; Wt 106.0 kg
[~2017-03-12 14:46] MED LIST changes: -IBUP-1428 PO; -OXYC1TAB3 PO
[2017-03-12 14:47] VITALS: TEMP 36.8; Ht 165.1 cm; Wt 106.0 kg
[2017-03-12] MEDS ORDERED: KETOROLAC TROMETHAMINE 30 MG/ML VIAL IV STA (16:08)
[2017-03-12] MEDS ORDERED: HYDROmorphone INJ 2 MG/ML SYR/VIAL IV STA (16:08)
--- NOTE | 2017-03-12 16:17 | EMERGENCY ROOM VISIT NOTE ---
History Report prepared by Tami: Hieu Abarca Under the Supervision of: Dr. Karin Louis D.O. First contact with patient: 15:53 Chief Complaint: BACK PAIN Stated Complaint: BACK PAIN POST CORTISONE SHOT History of Present Illness The patient is a 31 year old female who presents to the Emergency Room with complaints of sharp lower back pain that began several months ago. She rates her pain an 8/10 in severity. She has a past medical history of a herniated disc at L5-S1 and some protruding discs above this area as well. She denies any other known medical problems. Recently, the patient has been following up with pain management clinic and has been receiving Cortisone shots. She received an injection four days ago and states that once the Lidocaine wore off, her pain worsened significantly. She called the pain management clinic who told her it was normal to have some pain after the injection. However, her pain persisted today so she called the clinic again who told her to go to the ER. She states that her pain is radiating down her bilateral hips into her bilateral legs. She has been using Ibuprofen and a muscle relaxer to try to manage her pain. She states that her feet are cold, but denies any other symptoms. Her pain is exacerbated with movement. Source of History: patient Onset: several months ago Position: back (lower) Symptom Intensity: 8/10 Quality: sharp Timing: constant Modifying Factors (Worsening): movement Note: Her pain radiates down bilateral hips into bilateral legs. She notes her feet are cold. She denies any other abnormal symptoms. Review of Systems See HPI for pertinent positives & negatives. A total of 10 systems reviewed and were otherwise negative. Past Medical & Surgical Medical Problems: (1) Asthma (2) Dehydration (3) Dehydration, moderate (4) Insect bite (5) Nausea, vomiting, and diarrhea (6) No Known Active Medical Problems (7) Vomiting and diarrhea Surgical Problems: (1) S/P cholecystectomy Family History Patient reports no known family medical history. Social History Smoking Status: Former Smoker Smokeless Tobacco Use: No Drug Use: none Housing Status: lives with family Occupation Status: employed Current/Historical Medications Scheduled Carbamazepine (Tegretol), 400 MG PO TID Hydroxyzine Pamoate (Vistaril), 50 MG PO HS Scheduled PRN Ibuprofen Tab (Motrin), 800 MG PO TIDM PRN for Pain Methocarbamol (Robaxin), 750 MG PO TID PRN for Muscle Spasms Allergies Coded Allergies: Acetaminophen (Unverified Allergy, Unknown, unknown, 03/12/17) Baclofen (Unverified Allergy, Unknown, unknown, 03/12/17) Chlorhexidine (Unverified Allergy, Unknown, unknown, 03/12/17) Gabapentin (Unverified Allergy, Unknown, unknown, 03/12/17) Penicillins (Unverified Allergy, Unknown, unknown, 03/12/17) Sulfa Antibiotics (Unverified Allergy, Unknown, unknown, 03/12/17) Tizanidine (Unverified Allergy, Unknown, unknown, 03/12/17) Physical Exam Vital Signs Date Time Temp Pulse Resp B/P (MAP) Pulse Ox O2 Delivery O2 Flow Rate FiO2 03/12/17 17:41 66 16 148/62 100 03/12/17 16:34 97 Room Air 03/12/17 16:24 85 18 139/89 100 Room Air 03/12/17 14:47 36.8 84 18 126/82 99 Physical Exam HEENT: Head - normocephalic and atraumatic Pupils are equal, round, and reactive to light. Extraocular eye muscles are intact, and sclera are anicteric. Nose - moist nasal mucosa without discharge. Mouth - moist buccal mucosa. Oropharynx is nonerythematous and there is no tonsillar exudate or edema noted. Neck: Supple; no JVD, nuchal rigidity, cervical lymphadenopathy. Heart: Regular rate and rhythm. There is a normal S1 and S2 with no murmurs, clicks, or gallops appreciated. Lungs: Clear to auscultation bilaterally with no wheezes, rales, or rhonchi. Abdomen: Soft, completely nontender, nondistended, with good bowel sounds. There are no palpable pulsatile masses or hepatosplenomegaly. There is no guarding, rigidity, or rebound noted. Back: Pain to palpation over the entire L-spine. Extremities: No evidence of cyanosis, clubbing, or edema. There are easily palpable peripheral pulses. Normal pedal push and pull. Normal patellar reflexes. Decreased strength with flexion at the hips. Pain to palpation over the right hip. Skin: warm and dry with good turgor and no rashes. Medical Decision & Procedures Laboratory Results 03/12/17 16:15 Red Blood Count 4.90, Mean Corpuscular Volume 87.1, Mean Corpuscular Hemoglobin 30.0, Mean Corpuscular Hemoglobin Concent 34.4, Mean Platelet Volume 10.4, Neutrophils (%) (Auto) 56.3, Lymphocytes (%) (Auto) 35.6, Monocytes (%) (Auto) 5.2, Eosinophils (%) (Auto) 2.2, Basophils (%) (Auto) 0.2, Neutrophils # (Auto) 6.15, Lymphocytes # (Auto) 3.90, Monocytes # (Auto) 0.57, Eosinophils # (Auto) 0.24, Basophils # (Auto) 0.02 Test 03/12/17 16:15 White Blood Count 10.94 K/uL (4.8-10.8) Red Blood Count 4.90 M/uL (4.2-5.4) Hemoglobin 14.7 g/dL (12.0-16.0) Hematocrit 42.7 % (37-47) Mean Corpuscular Volume 87.1 fL (80-100) Mean Corpuscular Hemoglobin 30.0 pg (25-34) Mean Corpuscular Hemoglobin Concent 34.4 g/dl (32-36) Platelet Count 225 K/uL (130-400) Mean Platelet Volume 10.4 fL (7.4-10.4) Neutrophils (%) (Auto) 56.3 % Lymphocytes (%) (Auto) 35.6 % Monocytes (%) (Auto) 5.2 % Eosinophils (%) (Auto) 2.2 % Basophils (%) (Auto) 0.2 % Neutrophils # (Auto) 6.15 K/uL (1.4-6.5) Lymphocytes # (Auto) 3.90 K/uL (1.2-3.4) Monocytes # (Auto) 0.57 K/uL (0.11-0.59) Eosinophils # (Auto) 0.24 K/uL (0-0.5) Basophils # (Auto) 0.02 K/uL (0-0.2) RDW Standard Deviation 39.8 fL (36.4-46.3) RDW Coefficient of Variation 12.4 % (11.5-14.5) Immature Granulocyte % (Auto) 0.5 % Immature Granulocyte # (Auto) 0.06 K/uL (0.00-0.02) Erythrocyte Sedimentation Rate 2 mm/hr (0-21) C-Reactive Protein < 0.29 mg/dl (0-0.29) Laboratory results per my review. Medications Administered Medications (Trade) Dose Ordered Sig/Debora Route Start Time Stop Time Status Last Admin Dose Admin Hydromorphone HCl (Dilaudid Inj) 2 mg NOW STAT IV 03/12/17 16:08 03/12/17 16:09 DC 03/12/17 16:28 2 MG Ketorolac Tromethamine (Toradol Inj) 30 mg NOW STAT IV 03/12/17 16:08 03/12/17 16:09 DC 03/12/17 16:28 30 MG Procedure Toradol Inj 30 mg IV Dilaudid Inj 2 mg IV Oxycodone HCl 1 homepack PO ED Course 1553: Past medical records reviewed. The patient was evaluated in room C5. A complete history and physical exam was performed. IV lock was initiated and labs were drawn as above. 1600: I reviewed the patient's MRI in January 2017. It showed: a small left paracentral disc protrusion at L2-L3 with mild secondary deformity of the fecal sac that is on the left, a small to moderate central disc protrusion at L5-S1 with minimal secondary deformity of the fecal sac on the left, and a tiny disc protrusion at L4-L5. 1608: Ordered Toradol Inj 30 mg IV, Dilaudid Inj 2 mg IV 1730: Upon reevaluation, the patient got some relief with the pain medications, however the patient is coming back. I reviewed her laboratory results with her and she told me that pain management was planning on starting her on Oxycodone. I agreed to give her a homepack, but I am not willing to prescribe her any more. She will have to follow up with her PCP and/or Dr. Ng. 1745: Ordered Oxycodone HCl 1 homepack PO 1800: Upon reevaluation, the patient is resting. I discussed findings and results with her. She verbalized agreement of the treatment plan. She was discharged home. Medical Decision The patient is a 31 year old female who presents to the ED with lower back pain. Differential diagnosis includes acute exacerbation of chronic lower back pain and epidural abscess. Laboratory Results: White blood cell count 10.9, stable H&H, Sed rate 2, c-reactive protein less than 0.29 This is a 31-year-old female patient who presents to the emergency department with diffuse lower back pain and radiation into the right hip and right lower extremity. The patient has a history of degenerative disc disease in the lumbar spine. She had been given a cortisone injection with lidocaine [address] ng. She explains that once the lidocaine wore off that the pain returned in her back, radiating to her right hip and right lower extremity. She stated that she found the pain to be unbearable throughout the day today. She tried using NSAIDs and a muscle relaxant with no relief. We considered the possibility of a complication of the steroid injection but this is unlikely. The patient has no focal neurological findings. She is afebrile with no leukocytosis. I do not suspect a spinal abscess. I tried to discuss the case with Dr. ng to perform the procedure but he was not available. I've asked the patient to follow-up with Dr. ng in the morning as well as her PCP with regards to this increasing low back pain. She can use ibuprofen and her muscle relaxant. I do give her an OxyIR home pack. She was told to return here to the ER she developed fever or worsening back pain or weakness in her lower extremities. Medication Reconcilliation Current Medication List: was personally reviewed by me Blood Pressure Screening Patient's blood pressure: Elevated blood pressure Blood pressure disposition: Elevated BP felt to be situational Impression Primary Impression: Lumbar radiculopathy, right Scribe Attestation The scribe's documentation has been prepared under my direction and personally reviewed by me in its entirety. I confirm that the note above accurately reflects all work, treatment, procedures, and medical decision making performed by me. Departure Information Dispostion Home / Self-Care Referrals Oneyda Cadena D.O. (PCP) Forms HOME CARE DOCUMENTATION FORM, IMPORTANT VISIT INFORMATION Patient Instructions My [facility] [employer] Additional Instructions Rest. Motrin and muscle relaxant for pain. Use 1 oxy IR for severe pain every 4 hours. Follow up with PCP and/or Dr. Ng Return to ER for fevers or leg weakness
[2017-03-12 16:34] VITALS: O2SAT 97
[2017-03-12 16:34] LABS: BASO % 0.2 %; BASO ABS # 0.02 K/uL (0-0.2); EOS % 2.2 %; EOS ABS # 0.24 K/uL (0-0.5); HEMATOCRIT 42.7 % (37-47); HEMOGLOBIN 14.7 g/dL (12.0-16.0); IG# 0.06 K/uL (0.00-0.02); LYMPH % 35.6 %; MEAN CELL VOLUME 87.1 fL (80-100); MEAN CORPUSCULAR HGB CONC 34.4 g/dl (32-36); MEAN PLATELET VOLUME 10.4 fL (7.4-10.4); MONO % 5.2 %; MONO ABS # 0.57 K/uL (0.11-0.59); NEUT % 56.3 %; NEUT ABS # 6.15 K/uL (1.4-6.5); PLATELET COUNT 225 K/uL (130-400); RED CELL DISTRIBUTION WIDTH CV 12.4 % (11.5-14.5); RED CELL DISTRIBUTION WIDTH SD 39.8 fL (36.4-46.3); WHITE BLOOD COUNT 10.94 K/uL (4.8-10.8)
[2017-03-12] MEDS ORDERED: CARB200T3 PO (17:11)
[2017-03-12 17:41] VITALS: BP 148/62; PULSE 66; O2SAT 100
[2017-03-12] MEDS ORDERED: OXYCODONE IR HOME PACK PO ONE (17:45)
== END 2017-03-12 17:43 | disposition home or self-care (01) ==
LOC: C.EDB 14:49 → C.EDC 17:43
DX: M54.16 Radiculopathy, lumbar region (principal); J45.909 Unspecified asthma, uncomplicated; Z87.891 Personal history of nicotine dependence; Z90.49 Acquired absence of other specified parts of digestive tract

== ENCOUNTER → 2017-03-13 | Outpatient (CLI) | payer OTHER ==
[~2017-03-13] MED LIST changes: -CARB1CAP3 PO; +CARB200T3 PO
--- NOTE | 2017-03-13 18:05 | DIAGNOSTIC IMAGING REPORT ---
LUMBAR SPINE W/O CONTRAST CLINICAL HISTORY: 31 years-old Female with HERNIATED LUMBAR DISC. Progressively worsened subacute low back pain for several months. Pain radiates into the right lower extremity COMPARISON: Lumbar spine MRI 01/24/2017 TECHNIQUE: Multiplanar, multi sequence MRI of the lumbar spine was performed without intravenous contrast. FINDINGS: There is mildly decreased T1 marrow signal throughout the bony structures which is nonspecific. No focal suspicious mass lesions. No focal bone marrow edema, fracture or malalignment. Trace facet effusion is seen on the left at L5-S1. Conus medullaris terminates at the T12-L1 level. Signal within the cord appears to be within normal limits. Cauda equina appear to be within normal limits. The imaged intra-abdominal, intrapelvic and paraspinal structures demonstrate no acute abnormality. Mild endplate degenerative changes redemonstrated at L5-S1. T12-L1: No central canal or neural foraminal stenosis. L1-L2: No central canal or neural foraminal stenosis. L2-L3: Mild disc desiccation with small left paracentral disc extrusion at L2-L3 extending inferiorly 3 mm. This flattens the ventral thecal sac and causes mild central canal narrowing. Minimal facet arthrosis is also seen at this level. Neuroforamen are patent. L3-L4: Small circumferential annular disc bulge with mild disc desiccation. No significant central canal or foraminal narrowing. L4-L5: Mild disc desiccation with mild intervertebral disc space narrowing. Annular fissure redemonstrated with small central disc protrusion which flattens the ventral thecal sac. No significant central canal or foraminal narrowing. L5-S1: Mild to moderate intervertebral disc space narrowing with disc desiccation. Posterior spondylitic spurring is noted in addition to a small circumferential annular disc bulge with superimposed left paracentral disc protrusion which causes mild left lateral recess and mild left foraminal narrowing, abutting the left S1 nerve root. There is also mild right foraminal stenosis. Central canal is patent. IMPRESSION: 1. At L5-S1 intervertebral disc space narrowing with posterior spondylitic spurring is noted in addition to a small circumferential annular disc bulge and left paracentral disc protrusion which causes mild left lateral recess and mild bilateral foraminal narrowing. 2. Mild central canal stenosis at L2-L3 secondary to small left paracentral disc extrusion. 3. Annular fissure with small central disc protrusion again seen at L4-L5 without significant central canal or foraminal narrowing. 4. Homogeneously mildly decreased T1 marrow signal throughout the bony structures is nonspecific. Differential considerations would include anemia, sequela of smoking or obesity among other etiologies. The above report was generated using voice recognition software. It may contain grammatical, syntax or spelling errors. Electronically signed by: Ivan Sánchez M.D. 03/13/2017 6:04 PM Dictated Date/Time: 03/13/2017 4:31 PM
== END | disposition home or self-care (01) ==
LOC: C.MRIBC 15:38
PROVIDERS: ATTEND Pain Medicine Interventional Pain Medicine
DX: M51.26 Other intervertebral disc displacement, lumbar region (principal)

== ENCOUNTER 2017-06-08 08:07 | Inpatient (IN) | payer OTHER ==
[~2017-06-08] VITALS: Ht 165.1 cm; Wt 108.0 kg
[2017-06-08] VITALS (7 sets, daily range): BP systolic 106–137; BP diastolic 69–87; PULSE 59–93; TEMP 36.5–37.3; O2SAT 95–99; Ht 165.1 cm; Wt 108.0 kg
[2017-06-08] MEDS ORDERED: SODIUM CHLORIDE 0.9% 1000ML 1,000 ML IV STA (08:30)
[2017-06-08] MEDS ORDERED: ONDANSETRON INJ 2 MG/ML 2 ML VIAL IV STA (08:30)
--- NOTE | 2017-06-08 08:41 | EMERGENCY ROOM VISIT NOTE ---
History Report prepared by Tami: Mendoza Johnson Under the Supervision of: Dr. Aidan Chung D.O. First contact with patient: 08:19 Chief Complaint: REFERRED BY DOCTOR Stated Complaint: DR TOLD ME TO COME IN [place] History of Present Illness The patient is a 32 year old female who presents to the Emergency Room with complaints of persistent diarrhea and abdominal pain that began 8 days ago. The patient states that her symptoms began last Sunday morning when she began to experience her diarrhea. Sunday, 4 days ago, the patient began to feel "horrible " pain in her sides and diffusely across her stomach. She had 3-4 episodes of diarrhea already this morning. She visited her primary care office yesterday who ran a bolus of saline. She noted that her liver enzymes were concerning. The patient did note that her son had vomiting/diarrhea start last Sunday as well. Source of History: patient Onset: 8 days ago Position: abdomen Symptom Intensity: Horrible abd pain Quality: other (Diarrhea) Timing: other (Persistent) Associated Symptoms: + abdominal pain Review of Systems See HPI for pertinent positives & negatives. A total of 10 systems reviewed and were otherwise negative. Past Medical & Surgical Medical Problems: (1) Anxiety (2) Endometriosis (3) Fibromyalgia (4) Partial seizure disorder Surgical Problems: (1) H/O exploratory laparotomy (2) H/O sinus surgery (3) Hx of cholecystectomy (4) S/P cholecystectomy Family History Patient reports no known family medical history. Social History Smoking Status: Former Smoker Drug Use: none Housing Status: lives with family Occupation Status: employed Current/Historical Medications Scheduled Carbamazepine (Tegretol), 400 MG PO TID Hydroxyzine Pamoate (Vistaril), 50 MG PO HS Scheduled PRN Hydroxyzine Pamoate (Vistaril), 25 MG PO BID PRN for Anxiety Methocarbamol (Robaxin), 750 MG PO QID PRN for Muscle Spasms Ondansetron Hcl (Zofran), 4 MG PO Q8 PRN for Nausea Oxycodone Immediate Rel Tab (Roxicodone Ir), 5 MG PO Q6 PRN for Pain Allergies Coded Allergies: Red Dye (Unverified Allergy, Intermediate, wheezing, 06/08/17) Acetaminophen (Unverified Allergy, Unknown, unknown, 06/08/17) Baclofen (Unverified Allergy, Unknown, unknown, 06/08/17) Chlorhexidine (Unverified Allergy, Unknown, unknown, 06/08/17) Gabapentin (Unverified Allergy, Unknown, unknown, 06/08/17) Penicillins (Unverified Allergy, Unknown, unknown, 06/08/17) Sulfa Antibiotics (Unverified Allergy, Unknown, unknown, 06/08/17) Tizanidine (Unverified Allergy, Unknown, unknown, 06/08/17) Physical Exam Vital Signs Date Time Temp Pulse Resp B/P (MAP) Pulse Ox O2 Delivery O2 Flow Rate FiO2 06/08/17 13:02 98 Room Air 06/08/17 13:00 76 20 108/84 99 Room Air 06/08/17 11:25 67 20 104/58 98 Room Air 06/08/17 10:09 64 131/70 06/08/17 08:13 36.9 83 18 136/85 98 Room Air Physical Exam GENERAL: Patient is awake, alert, and in no acute distress. Patient is resting comfortably and showing no signs of anxiety EYES: The conjunctivae are clear. The pupils are round and reactive. EARS, NOSE, MOUTH AND THROAT: The nose is without any evidence of any deformity. Mucous membranes are moist tongue is midline NECK: The neck is nontender and supple. RESPIRATORY: Normal respiratory effort is noted there is no evidence of wheezing rhonchi or rales CARDIOVASCULAR: Regular rate and rhythm noted there no murmurs rubs or gallops normal S1 normal S2 GASTROINTESTINAL: The abdomen is moderately distended, but soft. Bowel sounds are present in all quadrants. Abdomen is diffusely tender. MUSCULOSKELETAL/EXTREMITIES: There is no evidence of gross deformity full range of motion is noted in the hips and shoulders SKIN: There is no obvious evidence of any rash. There are no petechiae, pallor or cyanosis noted. NEUROLOGIC: Patient is awake alert and oriented x3 strength is symmetric patellar reflexes are 2+ bilaterally Medical Decision & Procedures ER Provider Diagnostic Interpretation: Radiology results as stated below per my review and radiologist interpretation: ABD/PELVIS IV AND ORAL CONT CT DOSE: 1283.27 mGy.cm HISTORY: Pain. Nausea. sent by PCP for CT, N/V, reported elevated LFTs TECHNIQUE: Multiaxial CT images of the abdomen and pelvis were performed following the use of intravenous and oral contrast. A dose lowering technique was utilized adhering to the principles of ALARA. COMPARISON STUDY: None. FINDINGS: Lung bases are clear. Liver is uniform. There is mild biliary ductal prominence post cholecystectomy. Extra hepatic common bile that measures 7 mm. Transaxial image 207 and 205 show 2 calcifications at and or slightly distal to the common duct sphincter. These measure 3.0 mm and 1.5 mm respectively. Possibility of choledocholithiasis must be considered. Kidneys enhance uniformly. The bowel pattern suggests a minimal nonobstructive ileus. There are several mesenteric nodes suggesting mild reactive mesenteric adenopathy versus mild adenitis. There are small bilateral ovarian cysts. There is intrauterine device within the central uterine canal. IMPRESSION: 1. Operative changes consistent with a prior cholecystectomy. 2. Mild nonspecific biliary ductal prominence with 2 small calcifications measuring 3 and 1.5 mm at and are slightly distal to the common duct sphincter. 3. Choledocholithiasis must be considered given the patient's symptomatology. 4. Mild reactive mesenteric adenitis. 5. Small bilateral ovarian cysts. 6. MRCP or ERCP is suggested as follow-up. The above report was generated using voice recognition software. It may contain grammatical, syntax or spelling errors. Electronically signed by: Jonah Rodríguez M.D. 06/08/2017 11:54 AM Dictated Date/Time: 06/08/2017 11:46 AM Laboratory Results 06/08/17 09:54 Red Blood Count 4.44, Mean Corpuscular Volume 84.9, Mean Corpuscular Hemoglobin 29.3, Mean Corpuscular Hemoglobin Concent 34.5, Mean Platelet Volume 10.7, Neutrophils (%) (Auto) 49.6, Lymphocytes (%) (Auto) 38.7, Monocytes (%) (Auto) 8.4, Eosinophils (%) (Auto) 2.7, Basophils (%) (Auto) 0.4, Neutrophils # (Auto) 2.54, Lymphocytes # (Auto) 1.98, Monocytes # (Auto) 0.43, Eosinophils # (Auto) 0.14, Basophils # (Auto) 0.02 06/08/17 09:54 Test 06/08/17 09:25 06/08/17 09:54 Urine Color DK YELLOW Urine Appearance CLEAR (CLEAR) Urine pH 6.0 (4.5-7.5) Urine Specific [place] 1.026 (1.000-1.030) Urine Protein NEG (NEG) Urine Glucose (UA) NEG (NEG) Urine Ketones TRACE (NEG) Urine Occult Blood NEG (NEG) Urine Nitrite NEG (NEG) Urine Bilirubin NEG (NEG) Urine Urobilinogen NEG (NEG) Urine Leukocyte Esterase TRACE (NEG) Urine WBC (Auto) 1-5 /hpf (0-5) Urine RBC (Auto) 0-4 /hpf (0-4) Urine Hyaline Casts (Auto) 1-5 /lpf (0-5) Urine Epithelial Cells (Auto) >30 /lpf (0-5) Urine Bacteria (Auto) NEG (NEG) Urine Test NEG (NEG) White Blood Count 5.12 K/uL (4.8-10.8) Red Blood Count 4.44 M/uL (4.2-5.4) Hemoglobin 13.0 g/dL (12.0-16.0) Hematocrit 37.7 % (37-47) Mean Corpuscular Volume 84.9 fL (80-100) Mean Corpuscular Hemoglobin 29.3 pg (25-34) Mean Corpuscular Hemoglobin Concent 34.5 g/dl (32-36) Platelet Count 164 K/uL (130-400) Mean Platelet Volume 10.7 fL (7.4-10.4) Neutrophils (%) (Auto) 49.6 % Lymphocytes (%) (Auto) 38.7 % Monocytes (%) (Auto) 8.4 % Eosinophils (%) (Auto) 2.7 % Basophils (%) (Auto) 0.4 % Neutrophils # (Auto) 2.54 K/uL (1.4-6.5) Lymphocytes # (Auto) 1.98 K/uL (1.2-3.4) Monocytes # (Auto) 0.43 K/uL (0.11-0.59) Eosinophils # (Auto) 0.14 K/uL (0-0.5) Basophils # (Auto) 0.02 K/uL (0-0.2) RDW Standard Deviation 36.5 fL (36.4-46.3) RDW Coefficient of Variation 11.7 % (11.5-14.5) Immature Granulocyte % (Auto) 0.2 % Immature Granulocyte # (Auto) 0.01 K/uL (0.00-0.02) Anion Gap 2.0 mmol/L (3-11) Est Creatinine Clear Calc Drug Dose 127.7 ml/min Estimated GFR () 117.4 Estimated GFR (Non- 101.3 BUN/Creatinine Ratio 14.9 (10-20) Calcium Level 8.1 mg/dl (8.5-10.1) Total Bilirubin 0.5 mg/dl (0.2-1) Direct Bilirubin 0.1 mg/dl (0-0.2) Aspartate Amino Transf (AST/SGOT) 29 U/L (15-37) Alanine Aminotransferase (ALT/SGPT) 81 U/L (12-78) Alkaline Phosphatase 93 U/L (45-117) Total Protein 6.2 gm/dl (6.4-8.2) Albumin 3.3 gm/dl (3.4-5.0) Lipase 96 U/L (73-393) Laboratory results per my review. Medications Administered Medications (Trade) Dose Ordered Sig/Debora Route Start Time Stop Time Status Last Admin Dose Admin Ondansetron HCl (Zofran Inj) 4 mg NOW STAT IV 06/08/17 08:30 06/08/17 08:32 DC 06/08/17 09:35 4 MG Sodium Chloride 1,000 ml @ 999 mls/hr Q1H1M STAT IV 06/08/17 08:30 06/08/17 09:30 DC 06/08/17 09:35 999 MLS/HR Promethazine HCl 25 mg/Sodium Chloride 51 ml @ 204 mls/hr NOW STAT IV 06/08/17 09:38 06/08/17 09:52 DC 06/08/17 09:56 204 MLS/HR Cefoxitin Sodium (Mefoxin 2000mg/ 60 ml D5W) 2,000 mg NOW STAT IV 06/08/17 12:07 06/08/17 12:08 DC 06/08/17 12:50 2,000 MG Morphine Sulfate (MoRPHine SULFATE INJ) 4 mg STK-MED ONCE .ROUTE 06/08/17 12:43 06/08/17 12:44 DC 06/08/17 12:50 4 MG ED Course 0825: The patient was evaluated in room B8. A complete history and physical examination were performed. 0830: Ordered Sodium Chloride 1000 mL @ 999 mL/hr IV, Zofran 4 mg IV. 0938: Ordered Promethazine HCl 51 mL @ 204 mL/hr IV. 1204: I discussed the class with Dr. Trevor Stiles. She suggests ordering a MRCP and admitting to the hospitalist service. 1211: I discussed the case with Gaby HENRY. She will evaluate the patient for further treatment. Medical Decision Differential diagnosis: Etiologies such as appendicitis, diverticulitis, PUD, biliary pathology, UTI, pancreatitis, obstruction, mesenteric ischemia, aortic pathology, infections, inflammatory bowel disease, renal colic, as well as others were entertained. Nursing notes reviewed. The patient is a 32-year-old female who presented to emergency department for an evaluation of nausea vomiting and diarrhea. The patient was seen by her primary care physician yesterday and had laboratory studies obtained. She was told that her liver function studies were elevated and to go to the emergency department for further evaluation. The patient's physical exam was consistent with significant upper abdominal tenderness. She was treated with IV fluids and IV anti-medics. On subsequent reevaluation she was somewhat improved. The patient was told that she needed a CAT scan by her primary care physician. CAT scan revealed signs of possible choledocholithiasis. Her liver function studies were improved. I discussed her case with the on-call production generalist. At this time they recommended either an MRCP or possibly an ERCP to further evaluate the cause of the patient's discomfort. I discussed this case with the on-call [facility] hospitalist. They have agreed to evaluate the patient in the emergency department for further management and disposition. Medication Reconcilliation Current Medication List: was personally reviewed by me Blood Pressure Screening Patient's blood pressure: Normal blood pressure Consults Time Called: 1200 Consulting Physician: Dr. Trevor Stiles Returned Call: 1204 I discussed the class with Dr. Trevor Stiles. She suggests ordering a MRCP and admitting to the hospitalist service. Additional Consults: Time Called: 1206 Consulted Physician: Gaby HENRY Returned Call: 1211 Additional Comments: I discussed the case with Gaby HENRY. She will evaluate the patient for further treatment. Impression Primary Impression: Choledocholithiasis Additional Impression: RUQ abdominal pain Scribe Attestation The scribe's documentation has been prepared under my direction and personally reviewed by me in its entirety. I confirm that the note above accurately reflects all work, treatment, procedures, and medical decision making performed by me. Departure Information Dispostion Being Evaluated By Hospitalist Referrals Oneyda Cadena D.O. (PCP) Patient Instructions My [facility] Problem Qualifiers
[2017-06-08] MEDS ORDERED: OPTIRAY 320 IV PRN (09:00)
[2017-06-08] MEDS ORDERED: IBUP-1428 PO (09:28)
[2017-06-08] MEDS ORDERED: PROMETHAZINE HCL INJ 25 MG in SODIUM CHLORIDE 0.9% 50ML 50 ML IV STA (09:38)
[2017-06-08 10:24] LABS: BASO % 0.4 %; BASO ABS # 0.02 K/uL (0-0.2); EOS % 2.7 %; EOS ABS # 0.14 K/uL (0-0.5); HEMATOCRIT 37.7 % (37-47); IG# 0.01 K/uL (0.00-0.02); LYMPH % 38.7 %; LYMPH ABS # 1.98 K/uL (1.2-3.4); MEAN CELL VOLUME 84.9 fL (80-100); MEAN CORPUSCULAR HEMOGLOBIN 29.3 pg (25-34); MEAN CORPUSCULAR HGB CONC 34.5 g/dl (32-36); MEAN PLATELET VOLUME 10.7 fL (7.4-10.4); MONO % 8.4 %; MONO ABS # 0.43 K/uL (0.11-0.59); NEUT % 49.6 %; NEUT ABS # 2.54 K/uL (1.4-6.5); PLATELET COUNT 164 K/uL (130-400); RED CELL DISTRIBUTION WIDTH CV 11.7 % (11.5-14.5); RED CELL DISTRIBUTION WIDTH SD 36.5 fL (36.4-46.3); WHITE BLOOD COUNT 5.12 K/uL (4.8-10.8)
[2017-06-08 10:28] LABS: ALBUMIN 3.3 gm/dl (3.4-5.0); CALCIUM 8.1 mg/dl (8.5-10.1); CREATININE 0.78 mg/dl (0.60-1.20); POTASSIUM 3.9 mmol/L (3.5-5.1)
[2017-06-08 10:31] LABS: TOTAL PROTEIN 6.2 gm/dl (6.4-8.2)
--- NOTE | 2017-06-08 11:55 | DIAGNOSTIC IMAGING REPORT ---
ABD/PELVIS IV AND ORAL CONT CT DOSE: 1283.27 mGy.cm HISTORY: Pain. Nausea. sent by PCP for CT, N/V, reported elevated LFTs TECHNIQUE: Multiaxial CT images of the abdomen and pelvis were performed following the use of intravenous and oral contrast. A dose lowering technique was utilized adhering to the principles of ALARA. COMPARISON STUDY: None. FINDINGS: Lung bases are clear. Liver is uniform. There is mild biliary ductal prominence post cholecystectomy. Extra hepatic common bile that measures 7 mm. Transaxial image 207 and 205 show 2 calcifications at and or slightly distal to the common duct sphincter. These measure 3.0 mm and 1.5 mm respectively. Possibility of choledocholithiasis must be considered. Kidneys enhance uniformly. The bowel pattern suggests a minimal nonobstructive ileus. There are several mesenteric nodes suggesting mild reactive mesenteric adenopathy versus mild adenitis. There are small bilateral ovarian cysts. There is intrauterine device within the central uterine canal. IMPRESSION: 1. Operative changes consistent with a prior cholecystectomy. 2. Mild nonspecific biliary ductal prominence with 2 small calcifications measuring 3 and 1.5 mm at and are slightly distal to the common duct sphincter. 3. Choledocholithiasis must be considered given the patient's symptomatology. 4. Mild reactive mesenteric adenitis. 5. Small bilateral ovarian cysts. 6. MRCP or ERCP is suggested as follow-up. The above report was generated using voice recognition software. It may contain grammatical, syntax or spelling errors. Electronically signed by: Jonah Rodríguez M.D. 06/08/2017 11:54 AM Dictated Date/Time: 06/08/2017 11:46 AM
[2017-06-08] MEDS ORDERED: CEFOXITIN 2000MG/60 ML D5W IV STA (12:07)
[2017-06-08] MEDS ORDERED: MoRPHine SULFATE 4 MG/ML 1 ML CARP\\VIAL ONE (12:43)
[2017-06-08] MEDS ORDERED: SODIUM CHLORIDE 0.9% 1000ML 1,000 ML IV SCH ×2 (13:00→18:04)
--- NOTE | 2017-06-08 13:04 | Gastrointestinal Consultation ---
Gastrointestinal Consultation Date of Consultation: June 08, 2017 Attending Physician: Gaby Sarkar NP Consulting Physician: Dr. Hunter Romero Reason for Consultation: Elevated LFTs, CT with CBD stones History of Present Illness Patient is a 32 year old female patient with a hx of anxiety, asthma, chronic back pain, pen allergic and Tylenol allergic, S/P cholecystectomy 10 yrs ago who presented to her PCP yesterday for abdominal pain. Today, she was contacted and told to go to the ED because she has "elevated LFTs and needs a CT scan." Last (8 days) she began with upper abdomen pain, nausea, vomiting. Today, this upper abdomen pain intensified, "like someone kicked my stomach." As an OP, LFTs were found to be elevated at ALT 107, AST 55 though though LFTs on arrival here are normal as well as no leukocytosis. She denies any fevers, jaundice, icterus. She recalls similar episodes of pain "going on for years." Past Medical/Surgical History Medical Problems: (1) Acute bronchitis Status: Acute (2) Acute radicular low back pain Status: Acute (3) Asthma Status: Chronic (4) Choledocholithiasis Status: Acute (5) Influenza-like symptoms Status: Acute (6) Lumbar radiculopathy, right Status: Acute (7) RUQ abdominal pain Status: Acute Past Medical History: 1. Anxiety 2. Asthma 3. DDD, sciatica Past Surgical History: 1. Cholecystectomy 2. Laparoscopic surgery for endometriosis. Family History Patient reports no known family medical history. Social History Smoking Status: Former Smoker Drug Use: none Housing Status: lives with family Occupation Status: employed Allergies Coded Allergies: Red Dye (Unverified Allergy, Intermediate, wheezing, 06/08/17) Acetaminophen (Unverified Allergy, Unknown, unknown, 06/08/17) Baclofen (Unverified Allergy, Unknown, unknown, 06/08/17) Chlorhexidine (Unverified Allergy, Unknown, unknown, 06/08/17) Gabapentin (Unverified Allergy, Unknown, unknown, 06/08/17) Penicillins (Unverified Allergy, Unknown, unknown, 06/08/17) Sulfa Antibiotics (Unverified Allergy, Unknown, unknown, 06/08/17) Tizanidine (Unverified Allergy, Unknown, unknown, 06/08/17) Current Medications Home Meds and Scripts Medications Dose Route/Sig Max Daily Dose Days Date Category Motrin (Ibuprofen) 800 Mg Tab 800 Mg PO Q8H 06/08/17 Reported Robaxin (Methocarbamol) 750 Mg Tab 750 Mg PO TID PRN 06/08/17 Reported Vistaril (Hydroxyzine Pamoate) 50 Mg Cap 50 Mg PO HS 06/08/17 Reported Tegretol (Carbamazepine) 200 Mg Tab 400 Mg PO TID 06/08/17 Reported Zofran (Ondansetron HCl) 4 Mg Tab 4 Mg PO PRN 06/08/17 Reported Roxicodone Ir (Oxycodone HCl) 5 Mg Tab 5 Mg PO Q8 PRN 06/08/17 Reported Vistaril (Hydroxyzine Pamoate) 25 Mg Cap 25 Mg PO BID 06/08/17 Reported Review of Systems Constitutional: No fever, No chills, No sweats, No weight loss, No weakness Eyes: No eye pain, No redness ENT: No sore throat, No trouble swallowing, No pain on swallowing Respiratory: No cough, No wheezing, No shortness of breath, No dyspnea on exertion Cardiac: No chest pain, No edema, No palpitations Abdomen: + see HPI, + pain, + nausea, + vomiting, + dark urine, No GI bleeding , No acolic stools, No jaundice Neuro: No memory loss, No weakness, No numbness/tingling, No vertigo, No balance problems Psych: No depression symptoms, No anxiety, No insomnia Heme: No abnormal bleeding/bruising, No night sweats Endo: No excessive thirst, No excessive urination Skin: No rash, No itch, No new/changing skin lesions, No jaundice Physical Exam Date Time Temp Pulse Resp B/P (MAP) Pulse Ox O2 Delivery O2 Flow Rate FiO2 06/08/17 11:25 67 20 104/58 98 Room Air 06/08/17 10:09 64 131/70 06/08/17 08:13 36.9 83 18 136/85 98 Room Air General Appearance: no apparent distress Eyes: normal inspection, EOMI Neck: supple, no adenopathy, thyroid normal Respiratory/Chest: chest non-tender, lungs clear, normal breath sounds, no accessory muscle use Cardiovascular: regular rate, rhythm, no JVD, no murmur Abdomen: normal bowel sounds, soft, no organomegaly, + tenderness (moderate upper abdomen tenderness on palpation, w/o no guarding) Extremities: normal inspection, no pedal edema, normal capillary refill Neurologic/Psych: alert, normal mood/affect, oriented x 3 Skin: normal color, no jaundice, warm/dry, no rash Laboratory Results Last 24 Hours Test 06/08/17 09:25 06/08/17 09:54 Urine Color DK YELLOW Urine Appearance CLEAR Urine pH 6.0 Urine Specific [place] 1.026 Urine Protein NEG Urine Glucose (UA) NEG Urine Ketones TRACE Urine Occult Blood NEG Urine Nitrite NEG Urine Bilirubin NEG Urine Urobilinogen NEG Urine Leukocyte Esterase TRACE Urine WBC (Auto) 1-5 /hpf Urine RBC (Auto) 0-4 /hpf Urine Hyaline Casts (Auto) 1-5 /lpf Urine Epithelial Cells (Auto) >30 /lpf Urine Bacteria (Auto) NEG Urine Test NEG White Blood Count 5.12 K/uL Red Blood Count 4.44 M/uL Hemoglobin 13.0 g/dL Hematocrit 37.7 % Mean Corpuscular Volume 84.9 fL Mean Corpuscular Hemoglobin 29.3 pg Mean Corpuscular Hemoglobin Concent 34.5 g/dl Platelet Count 164 K/uL Mean Platelet Volume 10.7 fL Neutrophils (%) (Auto) 49.6 % Lymphocytes (%) (Auto) 38.7 % Monocytes (%) (Auto) 8.4 % Eosinophils (%) (Auto) 2.7 % Basophils (%) (Auto) 0.4 % Neutrophils # (Auto) 2.54 K/uL Lymphocytes # (Auto) 1.98 K/uL Monocytes # (Auto) 0.43 K/uL Eosinophils # (Auto) 0.14 K/uL Basophils # (Auto) 0.02 K/uL RDW Standard Deviation 36.5 fL RDW Coefficient of Variation 11.7 % Immature Granulocyte % (Auto) 0.2 % Immature Granulocyte # (Auto) 0.01 K/uL Sodium Level 140 mmol/L Potassium Level 3.9 mmol/L Chloride Level 111 mmol/L Carbon Dioxide Level 27 mmol/L Anion Gap 2.0 mmol/L Blood Urea Nitrogen 12 mg/dl Creatinine 0.78 mg/dl Est Creatinine Clear Calc Drug Dose 127.7 ml/min Estimated GFR () 117.4 Estimated GFR (Non- 101.3 BUN/Creatinine Ratio 14.9 Random Glucose 85 mg/dl Calcium Level 8.1 mg/dl Total Bilirubin 0.5 mg/dl Direct Bilirubin 0.1 mg/dl Aspartate Amino Transf (AST/SGOT) 29 U/L Alanine Aminotransferase (ALT/SGPT) 81 U/L Alkaline Phosphatase 93 U/L Total Protein 6.2 gm/dl Albumin 3.3 gm/dl Lipase 96 U/L CT abd/pelvis with IV/oral contrast 1. Operative changes consistent with a prior cholecystectomy. 2. Mild nonspecific biliary ductal prominence with 2 small calcifications measuring 3 and 1.5 mm at and are slightly distal to the common duct sphincter. 3. Choledocholithiasis must be considered given the patient's symptomatology. 4. Mild reactive mesenteric adenitis. 5. Small bilateral ovarian cysts. 6. MRCP or ERCP is suggested as follow-up. Impression Patient is a 32 year old female with elevated transaminases, upper abdomen pain , CT suggestive of choledocholithiasis. Plan 1. EUS/ERCP today. 2. Keep NPO. 3. Further recommendations to follow procedure. I saw and evaluated the patient. She presents with recurrent right-sided abdominal pain and has a CT which shows evidence of choledocholithiasis. Physical examination No obvious distress Right upper quadrant tenderness noted Impression: Patient status post cholecystectomy over 10 years ago now presenting with recurrent gallstones. We discussed the risks of ERCP to include bleeding, infection, perforation and pancreatitis. Plan EUS/ERCP Indocin 100 mg KS LR 1 L preoperatively and 1 L postoperatively
--- NOTE | 2017-06-08 13:22 | History and Physical ---
History & Physical Date & Time of Service: June 08, 2017 ~ 1215 Chief Complaint: Abdominal pain, nausea, vomiting Primary Care Physician: Oneyda Cadena D.O. History of Present Illness 32-year-old female who presents to the ED with abdominal pain, nausea, vomiting , and diarrhea. Patient reports her symptoms began about 8 days ago however have been intermittent for the past several years. This is the longest her symptoms lasted. Patient reports several episodes of vomiting and very poor p.o. intake for the past week. She also reports several episodes of diarrhea. Abdominal pain is located in the upper abdomen. She describes the pain as a stabbing. She also has lower abdominal cramping. She denies hematemesis, coffee-ground emesis, bright red bleeding per rectum, or dark tarry stools. She felt as though she has had a fever however did not take her temperature. No chest pain or shortness of breath. She denies lightheadedness, dizziness, diaphoresis, or syncopal events. She denies any urinary symptoms. Patient was seen by her PCP yesterday who obtained labs. Patient received a phone call today that her liver functions were abnormal and that she needed to come to the ER for further evaluation. In the ER, patient's LFTs are normal with the exception of a mildly elevated ALT at 81. CT ABD/pelvis is suggestive of choledocholithiasis. Patient is currently afebrile, no leukocytosis. In the ED , patient was given IVF, IV Zofran, IV promethazine, and IV cefoxitin. Past Medical/Surgical History Medical Problems: (1) Anxiety Status: Chronic (2) Endometriosis Status: Chronic (3) Fibromyalgia Status: Chronic (4) Partial seizure disorder Status: Chronic Surgical Problems: (1) H/O exploratory laparotomy Status: Chronic (2) H/O sinus surgery Status: Chronic (3) Hx of cholecystectomy Status: Chronic (4) S/P cholecystectomy Status: Resolved Family History FHx: thyroid disease MOTHER Social History Smoking Status: Former Smoker Alcohol Use: none Occupational Status: employed Immunizations History of Tetanus Vaccine?: Yes Tetanus Immunization Date: Oct 16, 2012 Allergies Coded Allergies: Coconut (Verified Allergy, Severe, ANAPHYLAXIS, 06/08/17) Monosodium Glutamate (Verified Allergy, Severe, ANAPHYLAXIS, 06/08/17) NUTS (Verified Allergy, Severe, ANAPHYLAXIS, 06/08/17) Sesame Oil (Verified Allergy, Severe, ANAPHYLAXIS, 06/08/17) Sulfate (Verified Allergy, Severe, ANAPHYLAXIS, 06/08/17) Caffeine (Verified Allergy, Intermediate, GI SYMPTOMS, 06/08/17) HEADACHE Dairy (Verified Allergy, Intermediate, GI SYMPTOMS, 06/08/17) Red Dye (Unverified Allergy, Intermediate, wheezing, 06/08/17) Acetaminophen (Unverified Allergy, Unknown, unknown, 06/08/17) Baclofen (Unverified Allergy, Unknown, unknown, 06/08/17) Chlorhexidine (Unverified Allergy, Unknown, unknown, 06/08/17) Gabapentin (Unverified Allergy, Unknown, unknown, 06/08/17) Penicillins (Unverified Allergy, Unknown, unknown, 06/08/17) Sulfa Antibiotics (Unverified Allergy, Unknown, unknown, 06/08/17) Tizanidine (Unverified Allergy, Unknown, unknown, 06/08/17) Home Medications Scheduled Carbamazepine (Tegretol), 400 MG PO TID Hydroxyzine Pamoate (Vistaril), 50 MG PO HS Scheduled PRN Hydroxyzine Pamoate (Vistaril), 25 MG PO BID PRN for Anxiety Methocarbamol (Robaxin), 750 MG PO QID PRN for Muscle Spasms Ondansetron Hcl (Zofran), 4 MG PO Q8 PRN for Nausea Oxycodone Immediate Rel Tab (Roxicodone Ir), 5 MG PO Q6 PRN for Pain Review of Systems ROS per HPI, all other systems reviewed and negative Physical Exam Vital Signs Date Time Temp Pulse Resp B/P (MAP) Pulse Ox O2 Delivery O2 Flow Rate FiO2 06/08/17 11:25 67 20 104/58 98 Room Air 06/08/17 10:09 64 131/70 06/08/17 08:13 36.9 83 18 136/85 98 Room Air General Appearance: WD/WN, no apparent distress Head: normocephalic, atraumatic Eyes: normal inspection, EOMI, sclerae normal ENT: hearing grossly normal, + pertinent finding (Mucous membranes moist) Neck: supple, no JVD, trachea midline Respiratory/Chest: lungs clear, normal breath sounds, no respiratory distress Cardiovascular: regular rate, rhythm, no edema, normal peripheral pulses Abdomen/GI: non tender, soft, no organomegaly, + tenderness (Mild, generalized) Extremities/Musculoskelatal: normal inspection, no calf tenderness, normal capillary refill Neurologic/Psych: no motor/sensory deficits, alert, normal mood/affect, oriented x 3 Skin: normal color, warm/dry Diagnostics Laboratory Results Results Past 24 Hours Test 06/08/17 09:25 06/08/17 09:54 Range/Units Urine Color DK YELLOW Urine Appearance CLEAR CLEAR Urine pH 6.0 4.5-7.5 Urine Specific [place] 1.026 1.000-1.030 Urine Protein NEG NEG Urine Glucose (UA) NEG NEG Urine Ketones TRACE NEG Urine Occult Blood NEG NEG Urine Nitrite NEG NEG Urine Bilirubin NEG NEG Urine Urobilinogen NEG NEG Urine Leukocyte Esterase TRACE NEG Urine WBC (Auto) 1-5 0-5 /hpf Urine RBC (Auto) 0-4 0-4 /hpf Urine Hyaline Casts (Auto) 1-5 0-5 /lpf Urine Epithelial Cells (Auto) >30 0-5 /lpf Urine Bacteria (Auto) NEG NEG Urine Test NEG NEG White Blood Count 5.12 4.8-10.8 K/uL Red Blood Count 4.44 4.2-5.4 M/uL Hemoglobin 13.0 12.0-16.0 g/dL Hematocrit 37.7 37-47 % Mean Corpuscular Volume 84.9 80-100 fL Mean Corpuscular Hemoglobin 29.3 25-34 pg Mean Corpuscular Hemoglobin Concent 34.5 32-36 g/dl Platelet Count 164 130-400 K/uL Mean Platelet Volume 10.7 7.4-10.4 fL Neutrophils (%) (Auto) 49.6 % Lymphocytes (%) (Auto) 38.7 % Monocytes (%) (Auto) 8.4 % Eosinophils (%) (Auto) 2.7 % Basophils (%) (Auto) 0.4 % Neutrophils # (Auto) 2.54 1.4-6.5 K/uL Lymphocytes # (Auto) 1.98 1.2-3.4 K/uL Monocytes # (Auto) 0.43 0.11-0.59 K/uL Eosinophils # (Auto) 0.14 0-0.5 K/uL Basophils # (Auto) 0.02 0-0.2 K/uL RDW Standard Deviation 36.5 36.4-46.3 fL RDW Coefficient of Variation 11.7 11.5-14.5 % Immature Granulocyte % (Auto) 0.2 % Immature Granulocyte # (Auto) 0.01 0.00-0.02 K/uL Sodium Level 140 136-145 mmol/L Potassium Level 3.9 3.5-5.1 mmol/L Chloride Level 111 98-107 mmol/L Carbon Dioxide Level 27 21-32 mmol/L Anion Gap 2.0 3-11 mmol/L Blood Urea Nitrogen 12 7-18 mg/dl Creatinine 0.78 0.60-1.20 mg/dl Est Creatinine Clear Calc Drug Dose 127.7 ml/min Estimated GFR () 117.4 Estimated GFR (Non- 101.3 BUN/Creatinine Ratio 14.9 10-20 Random Glucose 85 70-99 mg/dl Calcium Level 8.1 8.5-10.1 mg/dl Total Bilirubin 0.5 0.2-1 mg/dl Direct Bilirubin 0.1 0-0.2 mg/dl Aspartate Amino Transf (AST/SGOT) 29 15-37 U/L Alanine Aminotransferase (ALT/SGPT) 81 12-78 U/L Alkaline Phosphatase 93 45-117 U/L Total Protein 6.2 6.4-8.2 gm/dl Albumin 3.3 3.4-5.0 gm/dl Lipase 96 73-393 U/L Diagnostic Radiology CT ABD/PELVIS IMPRESSION: 1. Operative changes consistent with a prior cholecystectomy. 2. Mild nonspecific biliary ductal prominence with 2 small calcifications measuring 3 and 1.5 mm at and are slightly distal to the common duct sphincter. 3. Choledocholithiasis must be considered given the patient's symptomatology. 4. Mild reactive mesenteric adenitis. 5. Small bilateral ovarian cysts. 6. MRCP or ERCP is suggested as follow-up. Impression Assessment and Plan ABDOMINAL PAIN, LIKELY CHOLEDOCHOLITHIASIS -admit to [facility] -Patient presenting with persistent abdominal pain, nausea, vomiting, diarrhea 1 week; in the ED, CT ABD/pelvis suggestive of choledocholithiasis -Outpatient LFTs yesterday showed ALT 107, AST 55, T bili 0.2, alk phos 105, lipase 23; today LFTs are normal with exception of mildly elevated ALT at 81 -Case discussed with CARL Dyer -planning on ERCP later this afternoon -S/P dose of cefoxitin in the ER; will hold on further doses for now until results of ERCP, currently afebrile and her leukocytosis HISTORY OF SEIZURE DISORDER -Continue carbamazepine DVT PROPHYLAXIS -SCDs due to invasive procedure today DISPOSITION -In my clinical judgment this beneficiary meets acute admission criteria, established by [facility], that includes being hospitalized through two midnights. ATTENDING ADDENDUM Patient seen and examined care coordinated with Gaby HENRY Labs and images reviewed This is a 32-year-old female status post cholecystectomy approximately 10 years back, presented with right upper quadrant pain /nausea vomiting CT abdomen pelvis shows :Mild nonspecific biliary ductal prominence with 2 small calcifications measuring 3 and 1.5 mm at and are slightly distal to the common duct sphincter. Patient ordered for n.p.o., IV fluids/pain control GI eval requested Patient will undergo EUS/ERCP today CODE STATUS: Full code Ryanne Marino MD Resuscitation Status VTE Prophylaxis Will order VTE Prophylaxis: Yes
--- NOTE | 2017-06-08 13:36 | History & Physical Bridge Note ---
H&P Re-Evaluation Bridge Note: I have examined the patient, reviewed the History & Physical and in the interval since the performance of the History & Physical I have noted the following changes of clinical significance: No changes noted
[2017-06-08] MEDS ORDERED: DEXAMETHASONE SOD INJ 4 MG/ML VIAL ONE (14:15)
[2017-06-08] MEDS ORDERED: FENTANYL CITRATE INJ 50 MCG/1 ML 2 ML VIAL ONE (14:15)
[2017-06-08] MEDS ORDERED: ROCURONIUM BROMIDE 10 MG/ML 5 ML VIAL ONE (14:15)
[2017-06-08] MEDS ORDERED: LIDOCAINE HCL 2% 2 ML VIAL (20MG/ML) ONE (14:15)
[2017-06-08] MEDS ORDERED: EpHEDrine SULFATE INJ 50 MG/ML AMP IV PRN ×2 (14:15→19:00)
[2017-06-08] MEDS ORDERED: PROPOFOL IV EMULSION 10 MG/ML 20 ML VIAL ONE (14:15)
[2017-06-08] MEDS ORDERED: GLYCOPYRROLATE INJ 0.2 MG/ML VIAL ONE (14:15)
[2017-06-08] MEDS ORDERED: ATROPINE SULFATE 0.1 MG/ML 5ML SYR IV PRN ×2 (14:15→19:00)
[2017-06-08] MEDS ORDERED: NEOSTIGMINE METHYLSULFATE 5 MG/5 ML SYR ONE (14:15)
[2017-06-08] MEDS ORDERED: MIDAZOLAM HCL 1 MG/ML 2ML VIAL ONE (14:15)
[2017-06-08] MEDS ORDERED: ONDANSETRON INJ 2 MG/ML 2 ML VIAL IV PRN ×2 (14:15→19:00)
[2017-06-08] MEDS ORDERED: ONDANSETRON INJ 2 MG/ML 2 ML VIAL ONE (14:15)
[2017-06-08] MEDS ORDERED: INDOMETHACIN 50 MG SUPP ONE (14:43)
--- NOTE | 2017-06-08 15:18 | GI REPORT ---
Patient Name: Caitlin Krishnamurthy Procedure Date: 06/08/2017 2:31 PM Date of : 1985 Admit Type: Emergency Department Age: 32 Gender: Female Attending MD: Hunter Romero DO Procedure: Upper GI endoscopy Providers: Hunter Romero DO Referring MD: Amina Carr Indications: Epigastric abdominal pain, Abdominal pain in the right upper quadrant Medicines: General Anesthesia Complications: No immediate complications. Estimated blood loss: Minimal. Estimated Blood Loss: Estimated blood loss was minimal. Procedure: Pre-Anesthesia Assessment: - Prior to the procedure, a History and Physical was performed, and patient medications, allergies and sensitivities were reviewed. The patient's tolerance of previous anesthesia was reviewed. - The risks and benefits of the procedure and the sedation options and risks were discussed with the patient. All questions were answered and informed consent was obtained. - Patient identification and proposed procedure were verified prior to the procedure by the physician, the nurse and the recessing machine operator. The procedure was verified in the procedure room. - Pre-procedure physical examination revealed no contraindications to sedation. - ASA Grade Assessment: III - A patient with severe systemic disease. - After reviewing the risks and benefits, the patient was deemed in satisfactory condition to undergo the procedure. - The anesthesia plan was to use general anesthesia. - Immediately prior to administration of medications, the patient was re-assessed for adequacy to receive sedatives. - The heart rate, respiratory rate, oxygen saturations, blood pressure, adequacy of pulmonary ventilation, and response to care were monitored throughout the procedure. - The physical status of the patient was re-assessed after the procedure. After obtaining informed consent, the endoscope was passed under direct vision. Throughout the procedure, the patient's blood pressure, pulse, and oxygen saturations were monitored continuously. The Scope was introduced through the mouth, and advanced to the third part of duodenum. The upper GI endoscopy was accomplished without difficulty. The patient tolerated the procedure well. Findings: The examined esophagus was normal. The Z-line was regular and was found 35 cm from the incisors. Diffuse mild inflammation characterized by erythema and granularity was found in the entire examined stomach. Biopsies were taken with a cold forceps for histology. Estimated blood loss was minimal. The examined duodenum was normal. Impression: - Normal esophagus. - Z-line regular, 35 cm from the incisors. - Mild gastritis. Biopsied. - Normal examined duodenum. Recommendation: - Perform an upper endoscopic ultrasound (UEUS) today. - Await pathology results. Hunter Romero D.O. Hunter Romero, 06/08/2017 3:18:13 PM This report has been signed electronically. Note Initiated On: 06/08/2017 2:31 PM Number of Addenda: 0 I attest to the content of the Intraoperative Record and orders documented therein, exceptions below {[id number]}
--- NOTE | 2017-06-08 15:51 | GI REPORT ---
Patient Name: Caitlin Krishnamurthy Procedure Date: 06/08/2017 2:51 PM Date of : 1985 Admit Type: Emergency Department Age: 32 Gender: Female Attending MD: Hunter Romero DO Procedure: ERCP Providers: Hunter Romero DO Referring MD: Amina Carr Indications: Abdominal pain of suspected biliary origin, Bile duct stone on Computed Tomogram Scan Medicines: General Anesthesia, Indocin 100 mg [place] Complications: No immediate complications. Estimated blood loss: Minimal. Estimated Blood Loss: Estimated blood loss was minimal. Procedure: Pre-Anesthesia Assessment: - Prior to the procedure, a History and Physical was performed, and patient medications, allergies and sensitivities were reviewed. The patient's tolerance of previous anesthesia was reviewed. - The risks and benefits of the procedure and the sedation options and risks were discussed with the patient. All questions were answered and informed consent was obtained. - Patient identification and proposed procedure were verified prior to the procedure by the physician, the nurse and the sprinkler worker. The procedure was verified in the procedure room. - Pre-procedure physical examination revealed no contraindications to sedation. - ASA Grade Assessment: III - A patient with severe systemic disease. - After reviewing the risks and benefits, the patient was deemed in satisfactory condition to undergo the procedure. - The anesthesia plan was to use general anesthesia. - Immediately prior to administration of medications, the patient was re-assessed for adequacy to receive sedatives. - The heart rate, respiratory rate, oxygen saturations, blood pressure, adequacy of pulmonary ventilation, and response to care were monitored throughout the procedure. - The physical status of the patient was re-assessed after the procedure. After obtaining informed consent, the scope was passed under direct vision. Throughout the procedure, the patient's blood pressure, pulse, and oxygen saturations were monitored continuously. The SCOPE was introduced through the mouth, and advanced to the duodenum and used to inject contrast into the bile duct. The ERCP was accomplished without difficulty. The patient tolerated the procedure well. Findings: A field sales associate film of the abdomen was obtained. Surgical clips, consistent with previous cholecystectomy, were seen in the area of the. The bile duct was deeply cannulated with the short-nosed traction sphincterotome (Omni 35) and 0.035 in Acrobat 2 guidewire during the first cannulation attempt (PD not cannulated or injected). Contrast was injected. I personally interpreted the bile duct images. Contrast extended to the hepatic ducts. A cholecystectomy had been performed. The main bile duct was mildly dilated. The largest diameter was 8 mm. The biliary orifice was stenotic. This appeared benign. The lower third of the main bile duct contained one stone mm. Biliary sphincterotomy was made with a short-tip traction sphincterotome using ERBE electrocautery. There was no post-sphincterotomy bleeding. To discover objects, the biliary tree was swept with an 8.5 to 15 mm balloon starting at the bifurcation. One small stone was removed. No stones remained on occlusion cholangiogram. The endoscope was withdrawn from the patient. The total fluoroscopy exposure time was 58 seconds. Impression: - Choledocholithiasis was found. Complete removal was accomplished by biliary sphincterotomy and balloon extraction. - Papillary Stenosis Recommendation: - Avoid aspirin and nonsteroidal anti-inflammatory medicines for 1 week. - Clear liquid diet today. - Observe patient's clinical course following today's ERCP with therapeutic intervention. Hunter Romero D.O. Hunter Romero DO 06/08/2017 3:51:05 PM This report has been signed electronically. Note Initiated On: 06/08/2017 2:51 PM Number of Addenda: 0 I attest to the content of the Intraoperative Record and orders documented therein, exceptions below {[id number]}
--- NOTE | 2017-06-08 15:55 | GI REPORT ---
Patient Name: Caitlin Krishnamurthy Procedure Date: 06/08/2017 2:49 PM Date of : 1985 Admit Type: Emergency Department Age: 32 Gender: Female Attending MD: Hunter Romero DO Procedure: Upper EUS Providers: Hunter Romero DO Referring MD: Amina Carr Indications: Abnormal abdominal/pelvic CT scan, Suspected choledocholithiasis Medicines: General Anesthesia Complications: No immediate complications. Estimated blood loss: Minimal. Estimated Blood Loss: Estimated blood loss was minimal. Procedure: Pre-Anesthesia Assessment: - Prior to the procedure, a History and Physical was performed, and patient medications, allergies and sensitivities were reviewed. The patient's tolerance of previous anesthesia was reviewed. - The risks and benefits of the procedure and the sedation options and risks were discussed with the patient. All questions were answered and informed consent was obtained. - Patient identification and proposed procedure were verified prior to the procedure by the physician, the nurse and the inside sales coordinator. The procedure was verified in the procedure room. - Pre-procedure physical examination revealed no contraindications to sedation. - ASA Grade Assessment: III - A patient with severe systemic disease. - After reviewing the risks and benefits, the patient was deemed in satisfactory condition to undergo the procedure. - The anesthesia plan was to use general anesthesia. - Immediately prior to administration of medications, the patient was re-assessed for adequacy to receive sedatives. - The heart rate, respiratory rate, oxygen saturations, blood pressure, adequacy of pulmonary ventilation, and response to care were monitored throughout the procedure. - The physical status of the patient was re-assessed after the procedure. After obtaining informed consent, the endoscope was passed under direct vision. Throughout the procedure, the patient's blood pressure, pulse, and oxygen saturations were monitored continuously. The Scope was introduced through the mouth, and advanced to the second part of duodenum. The upper EUS was accomplished without difficulty. The patient tolerated the procedure well. Findings: Endosonographic Finding : There was no sign of significant endosonographic abnormality in the ampulla. No masses were identified. Evidence of a previous cholecystectomy was identified endosonographically. There was dilation in the common bile duct which measured up to 7.5 mm. One stone was visualized endosonographically in the common bile duct. The stone measured 4 mm in greatest dimension. It was hyperechoic and characterized by shadowing. There was no sign of significant endosonographic abnormality in the left lobe of the liver. Homogeneous parenchyma and no focal pathology were identified. There was no sign of significant endosonographic abnormality in the entire pancreas. No masses, no cysts, no calcifications, the pancreatic duct was thin in caliber. One enlarged lymph node was visualized in the monica hepatis region. It measured 16 mm by 8 mm in maximal cross-sectional diameter. The node was triangular, hypoechoic and had poorly defined margins. No lymph nodes were seen during endosonographic examination in the celiac region (level 20). There was no sign of significant endosonographic abnormality in the left adrenal gland. No adrenal gland enlargement was identified. Impression: - Normal ampulla. - Evidence of a cholecystectomy. - There was dilation in the common bile duct which measured up to 7.5 mm. - One stone was visualized endosonographically in the common bile duct. - Normal left lobe of the liver. - Normal pancreas. - One benign appearing lymph node was visualized in the monica hepatis region. - Normal left adrenal gland. - No specimens collected. Recommendation: - Perform an ERCP today. Hunter Romero D.O. Hunter Romero DO 06/08/2017 3:55:15 PM This report has been signed electronically. Note Initiated On: 06/08/2017 2:49 PM Number of Addenda: 0 I attest to the content of the Intraoperative Record and orders documented therein, exceptions below {[id number]}
--- NOTE | 2017-06-08 15:56 | [facility] Post Operative Brief Note ---
Immediate Operative Summary Operative Date June 08, 2017. Pre-Operative Diagnosis CBD stone Post-Operative Diagnosis CBD stone Procedure(s) Performed Esophagogastroduodenoscopy with biopsies, Endoscopic Ultrasound, Endoscopic Retrograde Cholangiopancreatogram Surgeon Dr. Hunter Romero Site Supervisor Surgeon(s) none Estimated Blood Loss 0mL Findings Consistent with Post-Op Diagnosis Specimens 1) gastric biopsies Drains None Anesthesia Type General Complication(s) none Disposition Accompanied Pt To Recover: no Disposition: Recovery Room / PACU
[2017-06-08] MEDS: FENTANYL CITRATE INJ 50 MCG/1 ML 2 ML VIAL IV PRN ×2 (16:12→16:20)
--- NOTE | 2017-06-08 16:40 | Anesthesiology Progress Note ---
Anesthesia Post Op Note Date & Time June 08, 2017 at 16:40 Vital Signs Pain Intensity: 3 Vital Signs Past 12 Hours Date Time Temp Pulse Resp B/P (MAP) Pulse Ox O2 Delivery O2 Flow Rate FiO2 06/08/17 16:20 75 16 126/80 100 Nasal Cannula 3 06/08/17 16:10 76 16 124/83 100 Oxymask 7 06/08/17 16:00 36 86 16 130/82 100 Oxymask 7 06/08/17 14:07 71 20 134/84 98 Room Air 06/08/17 13:02 98 Room Air 06/08/17 13:00 76 20 108/84 99 Room Air 06/08/17 11:25 67 20 104/58 98 Room Air 06/08/17 10:09 64 131/70 06/08/17 08:13 36.9 83 18 136/85 98 Room Air Notes Mental Status: alert / awake / arousable, participated in evaluation Pt Amnestic to Procedure: Yes Nausea / Vomiting: adequately controlled Pain: adequately controlled Airway Patency, RR, SpO2: stable & adequate BP & HR: stable & adequate Hydration State: stable & adequate Anesthetic Complications: no major complications apparent
--- NOTE | 2017-06-08 17:00 | DIAGNOSTIC IMAGING REPORT ---
ERCP BILIARY DUCTAL CLINICAL HISTORY: 32 years-old Female presenting with ERCP OR. TECHNIQUE: Fluoroscopy was provided for endoscopic retrograde cholangiopancreatography. 10 fluoroscopic image(s) recorded. COMPARISON: CT of abdomen and pelvis performed earlier the same day. FINDINGS: Peritoneal spillage: No evidence of peritoneal spillage of contrast. Extrahepatic bile ducts: An endoscope projects over the descending duodenum with a catheter introduced into the common bile duct. The common bile duct is normal in course and mildly prominent. Cholecystectomy clips are noted. This likely indicates a reservoir effect in the post cholecystectomy state. There are no filling defects seen within the common bile duct to suggest a retained stone. Contrast extends into the small bowel. Intrahepatic bile ducts: There is no intrahepatic bile duct dilatation. Fluoroscopy dosage (mGy): 25.95. Fluoroscopy time: 58.5 seconds. Number of fluoroscopic spot images: 0. IMPRESSION: No choledocholithiasis on ERCP. Postsurgical changes of cholecystectomy with mild prominence of the extrahepatic bile ducts likely a reservoir effect in the post cholecystectomy state. Electronically signed by: [place] Grady M.D. 06/08/2017 4:59 PM Dictated Date/Time: 06/08/2017 4:57 PM
[2017-06-08] MEDS: PROMETHAZINE HCL INJ 25 MG in SODIUM CHLORIDE 0.9% 50ML 50 ML IV PRN (17:20)
[2017-06-08] MEDS ORDERED: LACTATED RINGER'S 1000ML 1,000 ML IV ONE (17:30)
[2017-06-08] MEDS: LACTATED RINGER'S 1000ML 1,000 ML IV SCH (18:20)
[2017-06-08] MEDS ORDERED: FENTANYL CITRATE INJ 50 MCG/1 ML 2 ML VIAL IV PRN (19:00)
[2017-06-08] MEDS: MoRPHine SULFATE 4 MG/ML 1 ML CARP\\VIAL IV PRN ×2 (19:03→23:11)
[2017-06-08] MEDS ORDERED: hydrOXYzine HCL 25 MG TAB PO PRN (19:15)
[2017-06-08] MEDS: hydrOXYzine HCL 25 MG TAB PO SCH (20:25)
[2017-06-08] MEDS ORDERED: MoRPHine SULFATE 2 MG/ML CARP IV STA (20:33)
[2017-06-08] MEDS ORDERED: LORAZEPAM INJ 1 MG in SYRINGE 0.5 ML IV PRN (20:45)
[2017-06-08] MEDS ORDERED: CARBAMAZEPINE 200 MG TAB PO SCH (21:00)
[2017-06-08] MEDS ORDERED: COUGH DROP (SUGAR FREE) LOZ 24 LOZ/1 BOX LOZ PRN (21:30)
[2017-06-09] MEDS: PROMETHAZINE HCL INJ 25 MG in SODIUM CHLORIDE 0.9% 50ML 50 ML IV PRN ×2 (00:56→23:56)
[2017-06-09] MEDS ORDERED: hydrOXYzine HCL 25 MG TAB PO ONE (02:23)
[2017-06-09] MEDS ORDERED: OXYCODONE HCL IR 5 MG TAB (IMMEDIATE RELEASE) PO ONE (02:23)
[2017-06-09] MEDS: LACTATED RINGER'S 1000ML 1,000 ML IV SCH ×3 (02:36→18:52)
[2017-06-09 03:05] LABS: BASO % 0.2 %; BASO ABS # 0.01 K/uL (0-0.2); EOS ABS # 0.06 K/uL (0-0.5); HEMATOCRIT 37.7 % (37-47); HEMOGLOBIN 13.1 g/dL (12.0-16.0); IG# 0.01 K/uL (0.00-0.02); LYMPH % 35.5 %; LYMPH ABS # 2.22 K/uL (1.2-3.4); MEAN CELL VOLUME 84.9 fL (80-100); MEAN CORPUSCULAR HEMOGLOBIN 29.5 pg (25-34); MEAN CORPUSCULAR HGB CONC 34.7 g/dl (32-36); MEAN PLATELET VOLUME 10.2 fL (7.4-10.4); MONO % 6.4 %; NEUT % 56.7 %; NEUT ABS # 3.55 K/uL (1.4-6.5); PLATELET COUNT 207 K/uL (130-400); RED CELL DISTRIBUTION WIDTH CV 11.6 % (11.5-14.5); RED CELL DISTRIBUTION WIDTH SD 36.2 fL (36.4-46.3); WHITE BLOOD COUNT 6.25 K/uL (4.8-10.8)
[2017-06-09 03:08] VITALS: BP 121/81; PULSE 88; TEMP 36.7; O2SAT 99
[2017-06-09 03:28] LABS: ALBUMIN 3.4 gm/dl (3.4-5.0); CALCIUM 8.2 mg/dl (8.5-10.1); CREATININE 0.97 mg/dl (0.60-1.20); POTASSIUM 3.9 mmol/L (3.5-5.1)
[2017-06-09] MEDS: MoRPHine SULFATE 4 MG/ML 1 ML CARP\\VIAL IV PRN ×4 (03:29→18:52)
[2017-06-09 03:30] LABS: TOTAL PROTEIN 6.4 gm/dl (6.4-8.2)
[2017-06-09] MEDS ORDERED: CARBAMAZEPINE 200 MG TAB PO ONE (06:13)
[2017-06-09] MEDS ORDERED: LORAZEPAM INJ 1 MG in SYRINGE 0.5 ML IV PRN (06:30)
[2017-06-09] MEDS: ONDANSETRON INJ 2 MG/ML 2 ML VIAL IV PRN ×2 (07:09→19:00)
[2017-06-09 08:24] VITALS: BP 130/68; PULSE 92; TEMP 36.8; O2SAT 98
--- NOTE | 2017-06-09 09:21 | Gastroenterology Progress Note ---
Progress Note Date of Service: June 09, 2017 Subjective Pt evaluation today including: conversation w/ patient The patient underwent endoscopic ultrasound and ERCP yesterday for an impacted common bile duct stone. She notes having some intermittent discomfort overnight in addition to problems with her anxiety. The patient does have continued diarrhea which is been ongoing for several years. Of note this diarrhea did seem to start after her cholecystectomy. She denies any fevers chills or sweats. Review of Systems Constitutional: No fever, No sweats, No fatigue Respiratory: No cough, No wheezing, No dyspnea at rest Cardiac: + see HPI, No chest pain, No PND, No palpitations Psych: + anxiety, + insomnia Medications Current Inpatient Medications Medications (Trade) Dose Ordered Sig/Debora Route Start Time Stop Time Status Last Admin Dose Admin Ioversol (Optiray 320) 100 ml UD PRN IV 06/08/17 09:00 06/12/17 08:59 Morphine Sulfate (MoRPHine SULFATE INJ) 4 mg Q4H PRN IV 06/08/17 12:45 06/22/17 12:44 06/09/17 08:09 4 MG Ondansetron HCl (Zofran Inj) 4 mg Q6H PRN IV 06/08/17 12:45 07/08/17 12:44 06/09/17 07:09 4 MG Promethazine HCl 25 mg/Sodium Chloride 51 ml @ 204 mls/hr Q6H PRN IV 06/08/17 13:30 07/08/17 13:29 06/09/17 00:56 204 MLS/HR Lactated Ringer's 1,000 ml @ 125 mls/hr Q8H IV 06/08/17 18:30 07/08/17 18:29 06/09/17 02:36 125 MLS/HR Hydroxyzine HCl (Vistaril Tab) 25 mg BID PRN PO 06/08/17 19:15 07/08/17 19:14 Hydroxyzine HCl (Vistaril Tab) 50 mg HS PO 06/08/17 21:00 07/08/17 20:59 06/08/17 20:25 50 MG Menthol (Nice Sharri) 1 sharri PRN PRN SHARRI 06/08/17 21:30 07/08/17 21:29 06/08/17 22:26 1 SHARRI Oxycodone HCl (Roxicodone Immediate Rel Tab) 5 mg Q6H PRN PO 06/09/17 02:30 06/23/17 02:29 Lorazepam 1 mg/ Syringe 1 ml @ 0.5 mls/min TID PRN IV 06/09/17 06:30 07/08/17 20:44 06/09/17 07:09 0.5 MLS/MIN Carbamazepine (Tegretol Tab) 400 mg TID PO 06/09/17 14:00 07/08/17 20:59 Objective Vital Signs Date Time Temp Pulse Resp B/P (MAP) Pulse Ox O2 Delivery O2 Flow Rate FiO2 06/09/17 08:24 36.8 92 18 130/68 (88) 98 Room Air 06/09/17 08:20 Room Air 06/09/17 03:08 36.7 88 16 121/81 (94) 99 Room Air 06/09/17 00:40 Room Air 06/08/17 22:52 36.9 73 16 106/69 (81) 95 Room Air 06/08/17 19:39 37.3 93 16 119/80 (93) 95 Room Air 06/08/17 18:40 36.8 63 16 114/77 (89) 97 Room Air 06/08/17 17:44 36.6 59 16 137/87 (104) 98 Room Air 06/08/17 17:26 36.5 66 16 135/83 (100) 99 Room Air 06/08/17 16:45 Room Air 06/08/17 16:45 Room Air 06/08/17 16:35 36.4 72 16 133/84 97 Room Air 06/08/17 16:20 75 16 126/80 100 Nasal Cannula 3 06/08/17 16:10 76 16 124/83 100 Oxymask 7 06/08/17 16:00 36 86 16 130/82 100 Oxymask 7 06/08/17 14:07 71 20 134/84 98 Room Air 06/08/17 13:02 98 Room Air 06/08/17 13:00 76 20 108/84 99 Room Air 06/08/17 11:25 67 20 104/58 98 Room Air 06/08/17 10:09 64 131/70 Physical Exam General Appearance: no apparent distress Eyes: PERRL Neck: no JVD Respiratory/Chest: lungs clear Cardiovascular: regular rate, rhythm Abdomen: soft Neurologic/Psych: oriented x 3 Skin: no jaundice Laboratory Results Last 24 Hours Test 06/08/17 09:25 06/08/17 09:54 06/09/17 02:35 06/09/17 09:05 Urine Color DK YELLOW Urine Appearance CLEAR Urine pH 6.0 Urine Specific Vici 1.026 Urine Protein NEG Urine Glucose (UA) NEG Urine Ketones TRACE Urine Occult Blood NEG Urine Nitrite NEG Urine Bilirubin NEG Urine Urobilinogen NEG Urine Leukocyte Esterase TRACE Urine WBC (Auto) 1-5 /hpf Urine RBC (Auto) 0-4 /hpf Urine Hyaline Casts (Auto) 1-5 /lpf Urine Epithelial Cells (Auto) >30 /lpf Urine Bacteria (Auto) NEG Urine Test NEG White Blood Count 5.12 K/uL 6.25 K/uL Red Blood Count 4.44 M/uL 4.44 M/uL Hemoglobin 13.0 g/dL 13.1 g/dL Hematocrit 37.7 % 37.7 % Mean Corpuscular Volume 84.9 fL 84.9 fL Mean Corpuscular Hemoglobin 29.3 pg 29.5 pg Mean Corpuscular Hemoglobin Concent 34.5 g/dl 34.7 g/dl Platelet Count 164 K/uL 207 K/uL Mean Platelet Volume 10.7 fL 10.2 fL Neutrophils (%) (Auto) 49.6 % 56.7 % Lymphocytes (%) (Auto) 38.7 % 35.5 % Monocytes (%) (Auto) 8.4 % 6.4 % Eosinophils (%) (Auto) 2.7 % 1.0 % Basophils (%) (Auto) 0.4 % 0.2 % Neutrophils # (Auto) 2.54 K/uL 3.55 K/uL Lymphocytes # (Auto) 1.98 K/uL 2.22 K/uL Monocytes # (Auto) 0.43 K/uL 0.40 K/uL Eosinophils # (Auto) 0.14 K/uL 0.06 K/uL Basophils # (Auto) 0.02 K/uL 0.01 K/uL RDW Standard Deviation 36.5 fL 36.2 fL RDW Coefficient of Variation 11.7 % 11.6 % Immature Granulocyte % (Auto) 0.2 % 0.2 % Immature Granulocyte # (Auto) 0.01 K/uL 0.01 K/uL Sodium Level 140 mmol/L 140 mmol/L Potassium Level 3.9 mmol/L 3.9 mmol/L Chloride Level 111 mmol/L 108 mmol/L Carbon Dioxide Level 27 mmol/L 28 mmol/L Anion Gap 2.0 mmol/L 4.0 mmol/L Blood Urea Nitrogen 12 mg/dl 7 mg/dl Creatinine 0.78 mg/dl 0.97 mg/dl Est Creatinine Clear Calc Drug Dose 127.7 ml/min 102.7 ml/min Estimated GFR () 117.4 90.2 Estimated GFR (Non- 101.3 77.8 BUN/Creatinine Ratio 14.9 7.6 Random Glucose 85 mg/dl 109 mg/dl Calcium Level 8.1 mg/dl 8.2 mg/dl Total Bilirubin 0.5 mg/dl 0.3 mg/dl Direct Bilirubin 0.1 mg/dl Aspartate Amino Transf (AST/SGOT) 29 U/L 90 U/L Alanine Aminotransferase (ALT/SGPT) 81 U/L 165 U/L Alkaline Phosphatase 93 U/L 129 U/L Total Protein 6.2 gm/dl 6.4 gm/dl Albumin 3.3 gm/dl 3.4 gm/dl Lipase 96 U/L 113 U/L Globulin 3.0 gm/dl Albumin/Globulin Ratio 1.1 Assessment and Plan Patient underwent ERCP yesterday for an impacted gallstone. The procedure was performed without much difficulty. The pancreatic duct was not cannulated or injected yesterday. Suggest that we obtain a lipase this morning to see if it is elevated. If normal then the patient can have her diet advanced as tolerated today and perhaps she can have a discharge this afternoon. I suspect that many of her symptoms are related to underlying irritable bowel syndrome given her history of anxiety. She also has diarrhea which could be related to postcholecystectomy diarrhea. Recommendations Serum lipase ordered, may discharge if not elevated C. difficile PCR ordered Try Questran 4 g daily Consider use of Bentyl 10 mg twice daily Please call with any questions or concerns
[2017-06-09] MEDS ORDERED: MoRPHine SULFATE 4 MG/ML 1 ML CARP\\VIAL IV ONE (09:45)
[2017-06-09] MEDS ORDERED: LORAZEPAM INJ 0.5 MG in SYRINGE 0.25 ML IV SCH (10:00)
[2017-06-09 10:13] LABS: ALBUMIN 3.1 gm/dl (3.4-5.0)
[2017-06-09] MEDS: OXYCODONE HCL IR 5 MG TAB (IMMEDIATE RELEASE) PO PRN (12:00)
--- NOTE | 2017-06-09 13:10 | Progress Note ---
Internal Med Progress Note Date of Service: June 09, 2017. Provider Documentation: SUBJECTIVE: The patient was seen and examined in medical floor She has history of severe anxiety, fibromyalgia and history of cholecystectomy secondary to gallstones She was admitted yesterday with increasing abdominal pain, nausea and vomiting and was noted to have common bile duct stone She is a status post EGD and ERCP Complains to have more anxiety and pain and nausea Denies any other symptoms of fever chills and/or shortness of breath Wants to go home this afternoon OBJECTIVE: Vital Signs-as noted below Exam: General-minimal distress at rest mainly anxiety and/or pain Eyes-normal ENT-normal Neck-supple Lungs-clear to auscultate bilaterally Heart-regular, no murmur Abdomen-soft, tender in epigastrium and right upper quadrant , no organomegaly, bowel sounds present Extremities-negative for any edema Neuro-alert, awake and oriented 3 No focal sensory and/or motor deficit appreciated Lab data as noted below. ASSESSMENT & PLAN: ABDOMINAL PAIN, LIKELY CHOLEDOCHOLITHIASIS -Patient presenting with persistent abdominal pain, nausea, vomiting, diarrhea 1 week; in the ED, CT ABD/pelvis suggestive of choledocholithiasis -Outpatient LFTs yesterday showed ALT 107, AST 55, T bili 0.2, alk phos 105, lipase 23; today LFTs are normal with exception of mildly elevated ALT at 81 -Appreciate GI input -s/p EGD and ERCP -Reasonably stable following the procedures -C Diff Toxin-negative -Lipase and LFTs unremarkable -Advanced diet started-if tolerated will discharge home this afternoon -Cholestyramine and Bentyl added EVERETT with Fibromyalgia Continue current medications HISTORY OF SEIZURE DISORDER -Continue carbamazepine DVT PROPHYLAXIS -SCDs due to invasive procedure today DISPOSITION Likely home this afternoon Vital Signs: Date Time Temp Pulse Resp B/P (MAP) Pulse Ox O2 Delivery O2 Flow Rate FiO2 06/09/17 08:24 36.8 92 18 130/68 (88) 98 Room Air 06/09/17 08:20 Room Air 06/09/17 03:08 36.7 88 16 121/81 (94) 99 Room Air 06/09/17 00:40 Room Air 06/08/17 22:52 36.9 73 16 106/69 (81) 95 Room Air 06/08/17 19:39 37.3 93 16 119/80 (93) 95 Room Air 06/08/17 18:40 36.8 63 16 114/77 (89) 97 Room Air 06/08/17 17:44 36.6 59 16 137/87 (104) 98 Room Air 06/08/17 17:26 36.5 66 16 135/83 (100) 99 Room Air 06/08/17 16:45 Room Air 06/08/17 16:45 Room Air 06/08/17 16:35 36.4 72 16 133/84 97 Room Air 06/08/17 16:20 75 16 126/80 100 Nasal Cannula 3 06/08/17 16:10 76 16 124/83 100 Oxymask 7 06/08/17 16:00 36 86 16 130/82 100 Oxymask 7 06/08/17 14:07 71 20 134/84 98 Room Air Lab Results: Results Past 24 Hours Test 06/09/17 02:35 06/09/17 09:43 Range/Units White Blood Count 6.25 4.8-10.8 K/uL Red Blood Count 4.44 4.2-5.4 M/uL Hemoglobin 13.1 12.0-16.0 g/dL Hematocrit 37.7 37-47 % Mean Corpuscular Volume 84.9 80-100 fL Mean Corpuscular Hemoglobin 29.5 25-34 pg Mean Corpuscular Hemoglobin Concent 34.7 32-36 g/dl Platelet Count 207 130-400 K/uL Mean Platelet Volume 10.2 7.4-10.4 fL Neutrophils (%) (Auto) 56.7 % Lymphocytes (%) (Auto) 35.5 % Monocytes (%) (Auto) 6.4 % Eosinophils (%) (Auto) 1.0 % Basophils (%) (Auto) 0.2 % Neutrophils # (Auto) 3.55 1.4-6.5 K/uL Lymphocytes # (Auto) 2.22 1.2-3.4 K/uL Monocytes # (Auto) 0.40 0.11-0.59 K/uL Eosinophils # (Auto) 0.06 0-0.5 K/uL Basophils # (Auto) 0.01 0-0.2 K/uL RDW Standard Deviation 36.2 36.4-46.3 fL RDW Coefficient of Variation 11.6 11.5-14.5 % Immature Granulocyte % (Auto) 0.2 % Immature Granulocyte # (Auto) 0.01 0.00-0.02 K/uL Sodium Level 140 136-145 mmol/L Potassium Level 3.9 3.5-5.1 mmol/L Chloride Level 108 98-107 mmol/L Carbon Dioxide Level 28 21-32 mmol/L Anion Gap 4.0 3-11 mmol/L Blood Urea Nitrogen 7 7-18 mg/dl Creatinine 0.97 0.60-1.20 mg/dl Est Creatinine Clear Calc Drug Dose 102.7 ml/min Estimated GFR () 90.2 Estimated GFR (Non- 77.8 BUN/Creatinine Ratio 7.6 10-20 Random Glucose 109 70-99 mg/dl Calcium Level 8.2 8.5-10.1 mg/dl Total Bilirubin 0.3 0.3 0.2-1 mg/dl Aspartate Amino Transf (AST/SGOT) 90 60 15-37 U/L Alanine Aminotransferase (ALT/SGPT) 165 132 12-78 U/L Alkaline Phosphatase 129 113 45-117 U/L Total Protein 6.4 6.0 6.4-8.2 gm/dl Albumin 3.4 3.1 3.4-5.0 gm/dl Globulin 3.0 2.5-4.0 gm/dl Albumin/Globulin Ratio 1.1 0.9-2 Lipase 113 98 73-393 U/L Direct Bilirubin 0.1 0-0.2 mg/dl Microbiology Results 06/09/17 C.difficile Toxin B Gene (PCR) - Final, Complete No C. difficile toxin B gene detected
[2017-06-09] MEDS: CARBAMAZEPINE 200 MG TAB PO SCH ×2 (13:43→20:33)
[2017-06-09 14:57] VITALS: BP 108/65; PULSE 92; TEMP 36.8; O2SAT 98
[2017-06-09] MEDS ORDERED: KETOROLAC TROMETHAMINE 15 MG/ML VIAL IV SCH (15:15)
[2017-06-09] MEDS: LORAZEPAM INJ 1 MG in SYRINGE 0.5 ML IV PRN (20:27)
[2017-06-09] MEDS: hydrOXYzine HCL 25 MG TAB PO SCH (20:32)
[2017-06-09] MEDS ORDERED: KETOROLAC TROMETHAMINE 15 MG/ML VIAL IV. STA (20:54)
[2017-06-09 22:44] VITALS: BP 112/67; PULSE 87; TEMP 36.6; O2SAT 98
[2017-06-10] MEDS: OXYCODONE HCL IR 5 MG TAB (IMMEDIATE RELEASE) PO PRN ×2 (02:51→08:59)
[2017-06-10] MEDS: LACTATED RINGER'S 1000ML 1,000 ML IV SCH ×2 (03:06→10:58)
[2017-06-10] MEDS: LORAZEPAM INJ 1 MG in SYRINGE 0.5 ML IV PRN ×2 (04:50→11:17)
[2017-06-10] MEDS: MoRPHine SULFATE 4 MG/ML 1 ML CARP\\VIAL IV PRN ×3 (06:38→13:57)
[2017-06-10 06:58] VITALS: BP 99/60; PULSE 71; TEMP 36.7; O2SAT 97
[2017-06-10] MEDS: CARBAMAZEPINE 200 MG TAB PO SCH ×2 (08:39→13:58)
[2017-06-10] MEDS ORDERED: CHOLESTYRAMINE LIGHT 4 GM PKT PO SCH (09:00)
[2017-06-10] MEDS: PROMETHAZINE HCL INJ 25 MG in SODIUM CHLORIDE 0.9% 50ML 50 ML IV PRN (10:05)
[2017-06-10] MEDS ORDERED: KETOROLAC TROMETHAMINE 15 MG/ML VIAL IV SCH (10:30)
--- NOTE | 2017-06-10 11:17 | Progress Note ---
Internal Med Progress Note Date of Service: June 10, 2017. Provider Documentation: SUBJECTIVE: The patient was seen and examined in medical floor She has history of severe anxiety, fibromyalgia and history of cholecystectomy secondary to gallstones She was admitted yesterday with increasing abdominal pain, nausea and vomiting and was noted to have common bile duct stone She is a status post EGD and ERCP Complains to have more anxiety and pain and nausea Denies any other symptoms of fever chills and/or shortness of breath 5/6 Much better today Complains of Headache Has some abdominal pain ,no nausea and or vomiting OBJECTIVE: Vital Signs-as noted below Exam: General-minimal distress at rest mainly anxiety and/or pain Eyes-normal ENT-normal Neck-supple Lungs-clear to auscultate bilaterally Heart-regular, no murmur Abdomen-soft, tender in epigastrium and right upper quadrant-much improved , no organomegaly, bowel sounds present Extremities-negative for any edema Neuro-alert, awake and oriented 3 No focal sensory and/or motor deficit appreciated Lab data as noted below. ASSESSMENT & PLAN: ABDOMINAL PAIN, LIKELY CHOLEDOCHOLITHIASIS -Patient presenting with persistent abdominal pain, nausea, vomiting, diarrhea 1 week; in the ED, CT ABD/pelvis suggestive of choledocholithiasis -Outpatient LFTs yesterday showed ALT 107, AST 55, T bili 0.2, alk phos 105, lipase 23; today LFTs are normal with exception of mildly elevated ALT at 81 -Appreciate GI input -s/p EGD and ERCP -Reasonably stable following the procedures -C Diff Toxin-negative -Lipase and LFTs unremarkable -Advanced diet started-if tolerated will discharge home this afternoon -Cholestyramine and Bentyl added -clinically a lot better - discharge home today after Lunch -OT evaluation EVERETT with Fibromyalgia Continue current medications HISTORY OF SEIZURE DISORDER -Continue carbamazepine DVT PROPHYLAXIS -SCDs due to invasive procedure today DISPOSITION Discharge today Vital Signs: Date Time Temp Pulse Resp B/P (MAP) Pulse Ox O2 Delivery O2 Flow Rate FiO2 06/10/17 06:58 36.7 71 16 99/60 (73) 97 Room Air 06/10/17 00:00 Room Air 06/09/17 22:44 36.6 87 16 112/67 (82) 98 Room Air 06/09/17 15:30 Room Air 06/09/17 14:57 36.8 92 16 108/65 (79) 98 Room Air
[2017-06-10] MEDS ORDERED: QSTP PO (13:11)
--- NOTE | 2017-06-10 13:12 | Progress Note ---
Internal Med Progress Note Date of Service: June 10, 2017. Provider Documentation: SUBJECTIVE: The patient was seen and examined in medical floor She has history of severe anxiety, fibromyalgia and history of cholecystectomy secondary to gallstones She was admitted yesterday with increasing abdominal pain, nausea and vomiting and was noted to have common bile duct stone She is a status post EGD and ERCP Complains to have more anxiety and pain and nausea Denies any other symptoms of fever chills and/or shortness of breath 5/6 Much better today Complains of Headache Has some abdominal pain ,no nausea and or vomiting OBJECTIVE: Vital Signs-as noted below Exam: General-minimal distress at rest mainly anxiety and/or pain Eyes-normal ENT-normal Neck-supple Lungs-clear to auscultate bilaterally Heart-regular, no murmur Abdomen-soft, tender in epigastrium and right upper quadrant-much improved , no organomegaly, bowel sounds present Extremities-negative for any edema Neuro-alert, awake and oriented 3 No focal sensory and/or motor deficit appreciated Lab data as noted below. ASSESSMENT & PLAN: ABDOMINAL PAIN, LIKELY CHOLEDOCHOLITHIASIS -Patient presenting with persistent abdominal pain, nausea, vomiting, diarrhea 1 week; in the ED, CT ABD/pelvis suggestive of choledocholithiasis -Outpatient LFTs yesterday showed ALT 107, AST 55, T bili 0.2, alk phos 105, lipase 23; today LFTs are normal with exception of mildly elevated ALT at 81 -Appreciate GI input -s/p EGD and ERCP -Reasonably stable following the procedures -C Diff Toxin-negative -Lipase and LFTs unremarkable -Advanced diet started-if tolerated will discharge home this afternoon -Cholestyramine and Bentyl added -clinically a lot better - discharge home today after Lunch -OT evaluation EVERETT with Fibromyalgia Continue current medications HISTORY OF SEIZURE DISORDER -Continue carbamazepine DVT PROPHYLAXIS -SCDs due to invasive procedure today DISPOSITION Discharge today Vital Signs: Date Time Temp Pulse Resp B/P (MAP) Pulse Ox O2 Delivery O2 Flow Rate FiO2 06/10/17 08:00 Room Air 06/10/17 06:58 36.7 71 16 99/60 (73) 97 Room Air 06/10/17 00:00 Room Air 06/09/17 22:44 36.6 87 16 112/67 (82) 98 Room Air 06/09/17 15:30 Room Air 5/5/18 14:57 36.8 92 16 108/65 (02) 98 Room Air
--- NOTE | 2017-06-10 13:15 | Discharge Instructions ---
Discharge Instructions Date of Service June 10, 2017. Admission Reason for Admission: Choledocholithiasis Discharge Discharge Diagnosis / Problem: Choledocolithiasis,S/P ERCP Discharge Goals Goal(s): Prevent Disease Progression Activity Recommendations Activity Limitations: resume your previous activity . Instructions / Follow-Up Instructions / Follow-Up Do Cadena's office will call on Sunday with appointment Current Hospital Diet Patient's current hospital diet: Regular Diet, Low Lactose Diet Discharge Diet Recommended Diet: Regular Diet, Low Lactose Diet Procedures Procedures Performed: Esophagogastroduodenoscopy with biopsies, Endoscopic Ultrasound, Endoscopic Retrograde Cholangiopancreatogram Pending Studies Studies pending at discharge: no Medical Emergencies . Who to Call and When: Medical Emergencies: If at any time you feel your situation is an emergency, please call 911 immediately. . Non-Emergent Contact Non-Emergency issues call your: Primary Care Provider . Past History Medical & Surgical History: (1) Choledocholithiasis (2) Anxiety (3) Fibromyalgia (4) Hx of cholecystectomy (5) H/O sinus surgery (6) H/O exploratory laparotomy . "Provider Documentation" section prepared by Tamika Acuna. .
[2017-06-10] MEDS: ONDANSETRON INJ 2 MG/ML 2 ML VIAL IV PRN (13:56)
[2017-06-10 14:16] VITALS: BP 99/60; PULSE 71; TEMP 36.7; O2SAT 97
--- NOTE | 2017-06-10 15:17 | Progress Note ---
Progress Note Date of Service June 10, 2017. Progress Note Certified that Caitlin Yessy Castellanos, 1985 has been under my care at [facility] for the last 2 days. She can go back to work on June,. She can have her designated form signed by her primary care physician during the Follow Up appointment.
--- NOTE | 2017-06-10 16:16 | Discharge Summary ---
Discharge Summary Date of Service June 10, 2017. Discharge Summary Admission Date: June 08, 2017 at 12:46 Discharge Date: June 10, 2017 Discharge Disposition: Home Principal Diagnosis: Choledocolithiasis,S/P ERCP Secondary Diagnoses/Problems: Please see H&P and Hospital progress note Consultations: GI Medication Reconciliation New Medications: Cholestyramine (Cholestyramine Light) 4 Gm Pack 4 GM PO DAILY for 30 Days, #30 PKT To minimize drug interactions,take other drugs 1 hour before or at least 4 to 6 hours after it. Continued Medications: Carbamazepine (Tegretol) 200 Mg Tab 400 MG PO TID, TAB Hydroxyzine Pamoate (Vistaril) 25 Mg Cap 25 MG PO BID PRN for Anxiety, CAP Hydroxyzine Pamoate (Vistaril) 50 Mg Cap 50 MG PO HS, CAP Methocarbamol (Robaxin) 750 Mg Tab 750 MG PO QID PRN for Muscle Spasms, TAB Ondansetron Hcl (Zofran) 4 Mg Tab 4 MG PO Q8 PRN for Nausea, TAB Oxycodone Immediate Rel Tab (Roxicodone Ir) 5 Mg Tab 5 MG PO Q6 PRN for Pain, TAB Admission Information HPI (per Admitting provider): 32-year-old female who presents to the ED with abdominal pain, nausea, vomiting , and diarrhea. Patient reports her symptoms began about 8 days ago however have been intermittent for the past several years. This is the longest her symptoms lasted. Patient reports several episodes of vomiting and very poor p.o. intake for the past week. She also reports several episodes of diarrhea. Abdominal pain is located in the upper abdomen. She describes the pain as a stabbing. She also has lower abdominal cramping. She denies hematemesis, coffee-ground emesis, bright red bleeding per rectum, or dark tarry stools. She felt as though she has had a fever however did not take her temperature. No chest pain or shortness of breath. She denies lightheadedness, dizziness, diaphoresis, or syncopal events. She denies any urinary symptoms. Patient was seen by her PCP yesterday who obtained labs. Patient received a phone call today that her liver functions were abnormal and that she needed to come to the ER for further evaluation. In the ER, patient's LFTs are normal with the exception of a mildly elevated ALT at 81. CT ABD/pelvis is suggestive of choledocholithiasis. Patient is currently afebrile, no leukocytosis. In the ED , patient was given IVF, IV Zofran, IV promethazine, and IV cefoxitin. Past Medical/Surgical History Medical Problems: (1) Anxiety Status: Chronic (2) Endometriosis Status: Chronic (3) Fibromyalgia Status: Chronic (4) Partial seizure disorder Status: Chronic Surgical Problems: (1) H/O exploratory laparotomy Status: Chronic (2) H/O sinus surgery Status: Chronic (3) Hx of cholecystectomy Status: Chronic (4) S/P cholecystectomy Status: Resolved Family History FHx: thyroid disease MOTHER Social History Smoking Status: Former Smoker Alcohol Use: none Occupational Status: employed Immunizations History of Tetanus Vaccine?: Yes Tetanus Immunization Date: Oct 16, 2012 Allergies Coded Allergies: Coconut (Verified Allergy, Severe, ANAPHYLAXIS, 06/08/17) Monosodium Glutamate (Verified Allergy, Severe, ANAPHYLAXIS, 06/08/17) NUTS (Verified Allergy, Severe, ANAPHYLAXIS, 06/08/17) Sesame Oil (Verified Allergy, Severe, ANAPHYLAXIS, 06/08/17) Sulfate (Verified Allergy, Severe, ANAPHYLAXIS, 06/08/17) Caffeine (Verified Allergy, Intermediate, GI SYMPTOMS, 06/08/17) HEADACHE Dairy (Verified Allergy, Intermediate, GI SYMPTOMS, 06/08/17) Red Dye (Unverified Allergy, Intermediate, wheezing, 06/08/17) Acetaminophen (Unverified Allergy, Unknown, unknown, 06/08/17) Baclofen (Unverified Allergy, Unknown, unknown, 06/08/17) Chlorhexidine (Unverified Allergy, Unknown, unknown, 06/08/17) Gabapentin (Unverified Allergy, Unknown, unknown, 06/08/17) Penicillins (Unverified Allergy, Unknown, unknown, 06/08/17) Sulfa Antibiotics (Unverified Allergy, Unknown, unknown, 06/08/17) Tizanidine (Unverified Allergy, Unknown, unknown, 06/08/17) Home Medications Scheduled Carbamazepine (Tegretol), 400 MG PO TID Hydroxyzine Pamoate (Vistaril), 50 MG PO HS Scheduled PRN Hydroxyzine Pamoate (Vistaril), 25 MG PO BID PRN for Anxiety Methocarbamol (Robaxin), 750 MG PO QID PRN for Muscle Spasms Ondansetron Hcl (Zofran), 4 MG PO Q8 PRN for Nausea Oxycodone Immediate Rel Tab (Roxicodone Ir), 5 MG PO Q6 PRN for Pain Review of Systems ROS per HPI, all other systems reviewed and negative Physical Exam H&P v2 Physical Exam Vital Signs Date Time Temp Pulse Resp B/P (MAP) Pulse Ox O2 Delivery O2 Flow Rate FiO2 06/08/17 11:25 67 20 104/58 98 Room Air 06/08/17 10:09 64 131/70 06/08/17 08:13 36.9 83 18 136/85 98 Room Air General Appearance: WD/WN, no apparent distress Head: normocephalic, atraumatic Eyes: normal inspection, EOMI, sclerae normal ENT: hearing grossly normal, + pertinent finding (Mucous membranes moist) Neck: supple, no JVD, trachea midline Respiratory/Chest: lungs clear, normal breath sounds, no respiratory distress Cardiovascular: regular rate, rhythm, no edema, normal peripheral pulses Abdomen/GI: non tender, soft, no organomegaly, + tenderness (Mild, generalized) Extremities/Musculoskelatal: normal inspection, no calf tenderness, normal capillary refill Neurologic/Psych: no motor/sensory deficits, alert, normal mood/affect, oriented x 3 Skin: normal color, warm/dry Diagnostics H&P v2 Diagnostics Laboratory Results Results Past 24 Hours Test 06/08/17 09:25 06/08/17 09:54 Range/Units Urine Color DK YELLOW Urine Appearance CLEAR CLEAR Urine pH 6.0 4.5-7.5 Urine Specific [place] 1.026 1.000-1.030 Urine Protein NEG NEG Urine Glucose (UA) NEG NEG Urine Ketones TRACE NEG Urine Occult Blood NEG NEG Urine Nitrite NEG NEG Urine Bilirubin NEG NEG Urine Urobilinogen NEG NEG Urine Leukocyte Esterase TRACE NEG Urine WBC (Auto) 1-5 0-5 /hpf Urine RBC (Auto) 0-4 0-4 /hpf Urine Hyaline Casts (Auto) 1-5 0-5 /lpf Urine Epithelial Cells (Auto) >30 0-5 /lpf Urine Bacteria (Auto) NEG NEG Urine Test NEG NEG White Blood Count 5.12 4.8-10.8 K/uL Red Blood Count 4.44 4.2-5.4 M/uL Hemoglobin 13.0 12.0-16.0 g/dL Hematocrit 37.7 37-47 % Mean Corpuscular Volume 84.9 80-100 fL Mean Corpuscular Hemoglobin 29.3 25-34 pg Mean Corpuscular Hemoglobin Concent 34.5 32-36 g/dl Platelet Count 164 130-400 K/uL Mean Platelet Volume 10.7 7.4-10.4 fL Neutrophils (%) (Auto) 49.6 % Lymphocytes (%) (Auto) 38.7 % Monocytes (%) (Auto) 8.4 % Eosinophils (%) (Auto) 2.7 % Basophils (%) (Auto) 0.4 % Neutrophils # (Auto) 2.54 1.4-6.5 K/uL Lymphocytes # (Auto) 1.98 1.2-3.4 K/uL Monocytes # (Auto) 0.43 0.11-0.59 K/uL Eosinophils # (Auto) 0.14 0-0.5 K/uL Basophils # (Auto) 0.02 0-0.2 K/uL RDW Standard Deviation 36.5 36.4-46.3 fL RDW Coefficient of Variation 11.7 11.5-14.5 % Immature Granulocyte % (Auto) 0.2 % Immature Granulocyte # (Auto) 0.01 0.00-0.02 K/uL Sodium Level 140 136-145 mmol/L Potassium Level 3.9 3.5-5.1 mmol/L Chloride Level 111 98-107 mmol/L Carbon Dioxide Level 27 21-32 mmol/L Anion Gap 2.0 3-11 mmol/L Blood Urea Nitrogen 12 7-18 mg/dl Creatinine 0.78 0.60-1.20 mg/dl Est Creatinine Clear Calc Drug Dose 127.7 ml/min Estimated GFR () 117.4 Estimated GFR (Non- 101.3 BUN/Creatinine Ratio 14.9 10-20 Random Glucose 85 70-99 mg/dl Calcium Level 8.1 8.5-10.1 mg/dl Total Bilirubin 0.5 0.2-1 mg/dl Direct Bilirubin 0.1 0-0.2 mg/dl Aspartate Amino Transf (AST/SGOT) 29 15-37 U/L Alanine Aminotransferase (ALT/SGPT) 81 12-78 U/L Alkaline Phosphatase 93 45-117 U/L Total Protein 6.2 6.4-8.2 gm/dl Albumin 3.3 3.4-5.0 gm/dl Lipase 96 73-393 U/L Diagnostic Radiology CT ABD/PELVIS IMPRESSION: 1. Operative changes consistent with a prior cholecystectomy. 2. Mild nonspecific biliary ductal prominence with 2 small calcifications measuring 3 and 1.5 mm at and are slightly distal to the common duct sphincter. 3. Choledocholithiasis must be considered given the patient's symptomatology. 4. Mild reactive mesenteric adenitis. 5. Small bilateral ovarian cysts. 6. MRCP or ERCP is suggested as follow-up. Impression H&P v2 Impression Assessment and Plan ABDOMINAL PAIN, LIKELY CHOLEDOCHOLITHIASIS -admit to [facility] -Patient presenting with persistent abdominal pain, nausea, vomiting, diarrhea 1 week; in the ED, CT ABD/pelvis suggestive of choledocholithiasis -Outpatient LFTs yesterday showed ALT 107, AST 55, T bili 0.2, alk phos 105, lipase 23; today LFTs are normal with exception of mildly elevated ALT at 81 -Case discussed with CARL Dyer -planning on ERCP later this afternoon -S/P dose of cefoxitin in the ER; will hold on further doses for now until results of ERCP, currently afebrile and her leukocytosis HISTORY OF SEIZURE DISORDER -Continue carbamazepine DVT PROPHYLAXIS -SCDs due to invasive procedure today DISPOSITION -In my clinical judgment this beneficiary meets acute admission criteria, established by [facility], that includes being hospitalized through two midnights. ATTENDING ADDENDUM Patient seen and examined care coordinated with Gaby HENRY Labs and images reviewed This is a 32-year-old female status post cholecystectomy approximately 10 years back, presented with right upper quadrant pain /nausea vomiting CT abdomen pelvis shows :Mild nonspecific biliary ductal prominence with 2 small calcifications measuring 3 and 1.5 mm at and are slightly distal to the common duct sphincter. Patient ordered for n.p.o., IV fluids/pain control GI eval requested Patient will undergo EUS/ERCP today CODE STATUS: Full code Ryanne Marino MD Resuscitation Status VTE Prophylaxis Will order VTE Prophylaxis: Yes Physical Exam (per Admitting): General Appearance: WD/WN, no apparent distress Head: normocephalic, atraumatic Eyes: normal inspection, EOMI, sclerae normal ENT: hearing grossly normal, + pertinent finding (Mucous membranes moist) Neck: supple, no JVD, trachea midline Respiratory/Chest: lungs clear, normal breath sounds, no respiratory distress Cardiovascular: regular rate, rhythm, no edema, normal peripheral pulses Abdomen/GI: non tender, soft, no organomegaly, + tenderness (Mild, generalized) Extremities/Musculoskelatal: normal inspection, no calf tenderness, normal capillary refill Neurologic/Psych: no motor/sensory deficits, alert, normal mood/affect, oriented x 3 Skin: normal color, warm/dry Hospital Course ABDOMINAL PAIN, LIKELY CHOLEDOCHOLITHIASIS -Patient presenting with persistent abdominal pain, nausea, vomiting, diarrhea 1 week; in the ED, CT ABD/pelvis suggestive of choledocholithiasis -Outpatient LFTs yesterday showed ALT 107, AST 55, T bili 0.2, alk phos 105, lipase 23; today LFTs are normal with exception of mildly elevated ALT at 81 -Appreciate GI input -s/p EGD and ERCP -Reasonably stable following the procedures -C Diff Toxin-negative -Lipase and LFTs unremarkable -Advanced diet started-if tolerated will discharge home this afternoon -Cholestyramine and Bentyl added -clinically a lot better - discharge home today after Lunch -OT evaluation [place] with Fibromyalgia Continue current medications HISTORY OF SEIZURE DISORDER -Continue carbamazepine DVT PROPHYLAXIS -SCDs due to invasive procedure today DISPOSITION Discharge today Total time spent on discharge = 35 minutes This includes examination of the patient, discharge planning, medication reconciliation, and communication with other providers. Discharge Instructions Date of Service June 10, 2017. Admission Reason for Admission: Choledocholithiasis Discharge Discharge Diagnosis / Problem: Choledocolithiasis,S/P ERCP Discharge Goals Goal(s): Prevent Disease Progression Activity Recommendations Activity Limitations: resume your previous activity . Instructions / Follow-Up Instructions / Follow-Up Do Surinder's office will call on Sunday with appointment Current Hospital Diet Patient's current hospital diet: Regular Diet, Low Lactose Diet Discharge Diet Recommended Diet: Regular Diet, Low Lactose Diet Procedures Procedures Performed: Esophagogastroduodenoscopy with biopsies, Endoscopic Ultrasound, Endoscopic Retrograde Cholangiopancreatogram Pending Studies Studies pending at discharge: no Medical Emergencies . Who to Call and When: Medical Emergencies: If at any time you feel your situation is an emergency, please call 911 immediately. . Non-Emergent Contact Non-Emergency issues call your: Primary Care Provider . Past History Medical & Surgical History: (1) Choledocholithiasis (2) Anxiety (3) Fibromyalgia (4) Hx of cholecystectomy (5) H/O sinus surgery (6) H/O exploratory laparotomy . "Provider Documentation" section prepared by Tamika Acuna. . <Electronically signed by Tamika Acuna M.D.> Signed: 06/10/17 1656 Additional Copies To Oneyda Cadena D.O.
[2017-06-13] MEDS ORDERED: HYDR1CAP85 PO (09:26)
[2017-06-13] MEDS ORDERED: ONDA4TAB46 PO (09:26)
[2017-06-13] MEDS ORDERED: OXYC1TAB3 PO ×2 (09:26→18:58)
[2017-06-13] MEDS ORDERED: HYDR50CA2 PO (09:27)
[2017-06-13] MEDS ORDERED: CARB200T3 PO (09:27)
[2017-06-13] MEDS ORDERED: METH-307 PO (09:28)
== END 2017-06-10 15:45 | disposition home or self-care (01) | DRG 445 ==
LOC: C.EDB 08:09 → C.MSW 12:46 → ENRESERV 13:04
PROVIDERS: ADMIT Hospitalist; ATTEND Internal Medicine
PROC: 0FC98ZZ Extirpation of Matter from Common Bile Duct, Via Natural or Artificial Opening Endoscopic (ICD-10-PCS; principal; 2017-06-08 10:30)
PROC: 0DB68ZX Excision of Stomach, Via Natural or Artificial Opening Endoscopic, Diagnostic (ICD-10-PCS; principal; 2017-06-08 10:30)
DX: K80.50 Calculus of bile duct without cholangitis or cholecystitis without obstruction (principal); G40.109 Localization-related (focal) (partial) symptomatic epilepsy and epileptic syndromes with simple partial seizures, not intractable, without status epilepticus; Z68.41 Body mass index [BMI] 40.0-44.9, adult; K29.70 Gastritis, unspecified, without bleeding; R51 Headache; J45.909 Unspecified asthma, uncomplicated; K58.0 Irritable bowel syndrome with diarrhea; G89.29 Other chronic pain; M54.9 Dorsalgia, unspecified; M79.7 Fibromyalgia; F41.1 Generalized anxiety disorder; E66.9 Obesity, unspecified; Z90.49 Acquired absence of other specified parts of digestive tract; Z87.892 Personal history of anaphylaxis; Z87.891 Personal history of nicotine dependence; Z79.899 Other long term (current) drug therapy; Z88.0 Allergy status to penicillin; Z88.2 Allergy status to sulfonamides; Z88.6 Allergy status to analgesic agent; Z88.8 Allergy status to other drugs, medicaments and biological substances

== ENCOUNTER 2017-06-13 17:14 | Emergency (ER) | payer OTHER ==
[~2017-06-13] VITALS: Ht 165.1 cm; Wt 109.6 kg
[~2017-06-13 17:14] MED LIST changes: +HYDR1CAP85 PO; -IBUP-1451 PO; +ONDA4TAB46 PO; +OXYC1TAB3 PO; +QSTP PO
[2017-06-13 17:18] VITALS: TEMP 36.5; Ht 165.1 cm; Wt 109.6 kg
[2017-06-13] MEDS ORDERED: SODIUM CHLORIDE 0.9% 1000ML 1,000 ML IV STA (17:45)
[2017-06-13] MEDS ORDERED: ONDANSETRON INJ 2 MG/ML 2 ML VIAL IV STA (17:45)
--- NOTE | 2017-06-13 17:56 | EMERGENCY ROOM VISIT NOTE ---
History Report prepared by Tami: Yesenia Greenwood Under the Supervision of: Dr. Aidan Chung D.O. First contact with patient: 17:41 Chief Complaint: REFERRED BY DOCTOR Stated Complaint: SURGERY SUNDAY, PAIN,FEVER,SICK History of Present Illness The patient is a 32 year old female who presents to the Emergency Room with complaints of fever and persistent abdominal pain. The patient recently had an ERCP for retained ductal stones. The patient has a history of a cholecystectomy in the past but presented to our emergency department a few days ago with similar complaints. She was admitted to the hospital for choledocholithiasis. She was treated with IV fluids and had an ERCP. The ERCP was positive for retained stones which were removed by our sandwich wrapper. The patient states that she was feeling well until today. She presented to her primary care physician's office for upper abdominal pain. At that time she was also noted to have a low-grade fever. She was told by her primary care physician to go to the emergency department for further evaluation. The patient complains of nausea. She also has fever. She has taken no medications for pain or nausea. She states the pain is in the upper abdomen and very severe. She states the pain is worse with any movement. She also notices it when she tries to sit forward the pain increases as well. Source of History: patient Onset: since today Position: abdomen Symptom Intensity: severe Timing: other (persistent) Modifying Factors (Worsening): movement Associated Symptoms: + fevers, + nausea Review of Systems See HPI for pertinent positives & negatives. A total of 10 systems reviewed and were otherwise negative. Past Medical & Surgical Medical Problems: (1) Anxiety (2) Choledocholithiasis (3) Endometriosis (4) Fibromyalgia (5) Partial seizure disorder Surgical Problems: (1) H/O exploratory laparotomy (2) H/O sinus surgery (3) Hx of cholecystectomy (4) S/P cholecystectomy Family History FHx: thyroid disease MOTHER Social History Smoking Status: Never Smoker Housing Status: lives with family Occupation Status: employed Current/Historical Medications Scheduled Carbamazepine (Tegretol), 400 MG PO TID Hydroxyzine Pamoate (Vistaril), 50 MG PO HS Ondasetron Odt (Zofran Odt), 4 MG SL Q6H Polyethylene Glycol 3350 (Miralax), 17 GM PO DAILY Scheduled PRN Hydroxyzine Pamoate (Vistaril), 25 MG PO BID PRN for Anxiety Methocarbamol (Robaxin), 750 MG PO QID PRN for Muscle Spasm Ondansetron Hcl (Zofran), 4 MG PO Q8 PRN for Nausea Oxycodone Immediate Rel Tab (Roxicodone Ir), 5 MG PO Q6H PRN for Pain Oxycodone Immediate Rel Tab (Roxicodone Ir), 1-2 TAB PO Q4H PRN for Severe Pain Allergies Coded Allergies: Coconut (Verified Allergy, Severe, ANAPHYLAXIS, 06/08/17) Monosodium Glutamate (Verified Allergy, Severe, ANAPHYLAXIS, 06/08/17) NUTS (Verified Allergy, Severe, ANAPHYLAXIS, 06/08/17) Sesame Oil (Verified Allergy, Severe, ANAPHYLAXIS, 06/08/17) Sulfate (Verified Allergy, Severe, ANAPHYLAXIS, 06/08/17) Caffeine (Verified Allergy, Intermediate, GI SYMPTOMS, 06/08/17) HEADACHE Dairy (Verified Allergy, Intermediate, GI SYMPTOMS, 06/08/17) Red Dye (Unverified Allergy, Intermediate, wheezing, 06/08/17) Acetaminophen (Unverified Allergy, Unknown, unknown, 06/08/17) Baclofen (Unverified Allergy, Unknown, unknown, 06/08/17) Chlorhexidine (Unverified Allergy, Unknown, unknown, 06/08/17) Gabapentin (Unverified Allergy, Unknown, unknown, 06/08/17) Penicillins (Unverified Allergy, Unknown, unknown, 06/08/17) Sulfa Antibiotics (Unverified Allergy, Unknown, unknown, 06/08/17) Tizanidine (Unverified Allergy, Unknown, unknown, 06/08/17) Physical Exam Vital Signs Date Time Temp Pulse Resp B/P (MAP) Pulse Ox O2 Delivery O2 Flow Rate FiO2 06/13/17 18:40 73 18 102/58 97 06/13/17 17:58 79 06/13/17 17:18 36.5 84 20 134/81 100 Room Air Physical Exam GENERAL: Patient is awake and alert. She appears very anxious and uncomfortable. EYES: The conjunctivae are clear. The pupils are round and reactive. EARS, NOSE, MOUTH AND THROAT: The nose is without any evidence of any deformity. Mucous membranes are moist tongue is midline NECK: The neck is nontender and supple. RESPIRATORY: Normal respiratory effort is noted there is no evidence of wheezing rhonchi or rales CARDIOVASCULAR: Regular rate and rhythm noted there no murmurs rubs or gallops normal S1 normal S2 GASTROINTESTINAL: The abdomen is moderately distended and diffusely tender. There is upper abdominal tenderness to palpation. BACK: No midline pain was noted. There is significant right flank tenderness to percussion. Range of motion appears intact. MUSCULOSKELETAL/EXTREMITIES: There is no evidence of gross deformity full range of motion is noted in the hips and shoulders SKIN: There is no obvious evidence of any rash. There are no petechiae, pallor or cyanosis noted. NEUROLOGIC: Patient is awake alert and oriented x3. Medical Decision & Procedures ER Provider Diagnostic Interpretation: Radiology results as stated below per my review and radiologist interpretation: CHEST ONE VIEW PORTABLE CLINICAL HISTORY: 32 years-old Female presenting with upper abd pain, S/P ERCP. TECHNIQUE: Portable upright AP view of the chest was obtained. COMPARISON: 02/25/2017. FINDINGS: Cardiomediastinal silhouette normal. No focal opacity. No large effusion or pneumothorax. Osseous structures normal. Upper abdomen normal. IMPRESSION: 1. No acute cardiopulmonary disease. No free air. Electronically signed by: [place] Grady M.D. 06/13/2017 6:10 PM Dictated Date/Time: 06/13/2017 6:09 PM Laboratory Results 06/13/17 17:55 Red Blood Count 5.30, Mean Corpuscular Volume 84.2, Mean Corpuscular Hemoglobin 30.0, Mean Corpuscular Hemoglobin Concent 35.7, Mean Platelet Volume 10.3, Neutrophils (%) (Auto) 58.8, Lymphocytes (%) (Auto) 31.7, Monocytes (%) (Auto) 5.3, Eosinophils (%) (Auto) 3.0, Basophils (%) (Auto) 0.4, Neutrophils # (Auto) 5.62, Lymphocytes # (Auto) 3.03, Monocytes # (Auto) 0.51, Eosinophils # (Auto) 0.29, Basophils # (Auto) 0.04 06/13/17 17:55 Test 06/13/17 17:50 06/13/17 17:55 Urine Color YELLOW Urine Appearance CLEAR (CLEAR) Urine pH 6.5 (4.5-7.5) Urine Specific [place] 1.016 (1.000-1.030) Urine Protein NEG (NEG) Urine Glucose (UA) NEG (NEG) Urine Ketones NEG (NEG) Urine Occult Blood NEG (NEG) Urine Nitrite NEG (NEG) Urine Bilirubin NEG (NEG) Urine Urobilinogen NEG (NEG) Urine Leukocyte Esterase SMALL (NEG) Urine WBC (Auto) 1-5 /hpf (0-5) Urine RBC (Auto) 0-4 /hpf (0-4) Urine Hyaline Casts (Auto) 0 /lpf (0-5) Urine Epithelial Cells (Auto) >30 /lpf (0-5) Urine Bacteria (Auto) NEG (NEG) White Blood Count 9.57 K/uL (4.8-10.8) Red Blood Count 5.30 M/uL (4.2-5.4) Hemoglobin 15.9 g/dL (12.0-16.0) Hematocrit 44.6 % (37-47) Mean Corpuscular Volume 84.2 fL (80-100) Mean Corpuscular Hemoglobin 30.0 pg (25-34) Mean Corpuscular Hemoglobin Concent 35.7 g/dl (32-36) Platelet Count 294 K/uL (130-400) Mean Platelet Volume 10.3 fL (7.4-10.4) Neutrophils (%) (Auto) 58.8 % Lymphocytes (%) (Auto) 31.7 % Monocytes (%) (Auto) 5.3 % Eosinophils (%) (Auto) 3.0 % Basophils (%) (Auto) 0.4 % Neutrophils # (Auto) 5.62 K/uL (1.4-6.5) Lymphocytes # (Auto) 3.03 K/uL (1.2-3.4) Monocytes # (Auto) 0.51 K/uL (0.11-0.59) Eosinophils # (Auto) 0.29 K/uL (0-0.5) Basophils # (Auto) 0.04 K/uL (0-0.2) RDW Standard Deviation 35.9 fL (36.4-46.3) RDW Coefficient of Variation 11.7 % (11.5-14.5) Immature Granulocyte % (Auto) 0.8 % Immature Granulocyte # (Auto) 0.08 K/uL (0.00-0.02) Anion Gap 6.0 mmol/L (3-11) Est Creatinine Clear Calc Drug Dose 110.4 ml/min Estimated GFR () 97.4 Estimated GFR (Non- 84.1 BUN/Creatinine Ratio 17.9 (10-20) Calcium Level 9.0 mg/dl (8.5-10.1) Total Bilirubin 0.3 mg/dl (0.2-1) Direct Bilirubin < 0.1 mg/dl (0-0.2) Aspartate Amino Transf (AST/SGOT) 20 U/L (15-37) Alanine Aminotransferase (ALT/SGPT) 60 U/L (12-78) Alkaline Phosphatase 104 U/L (45-117) Total Protein 8.2 gm/dl (6.4-8.2) Albumin 4.1 gm/dl (3.4-5.0) Lipase 153 U/L (73-393) Human Chorionic Gonadotropin, Qual NEG (NEG) Laboratory results per my review. Medications Administered Medications (Trade) Dose Ordered Sig/Debora Route Start Time Stop Time Status Last Admin Dose Admin Sodium Chloride 1,000 ml @ 999 mls/hr Q1H1M STAT IV 06/13/17 17:45 06/13/17 18:45 DC 06/13/17 18:00 999 MLS/HR Ondansetron HCl (Zofran Inj) 4 mg NOW STAT IV 06/13/17 17:45 06/13/17 17:46 DC 06/13/17 17:59 4 MG Morphine Sulfate (MoRPHine SULFATE INJ) 4 mg Q15M PRN IV 06/13/17 18:00 06/27/17 17:59 06/13/17 18:38 4 MG ED Course 1740: The patient was evaluated in room C7. A complete history and physical examination were performed. 1745: Ordered Zofran 4 mg IV and NSS 1,000 ml @ 999 mls/hr IV 1800: Ordered Morphine Sulfate 4 mg IV 1845: I reassessed the patient at this time. She is resting comfortably. 1850: I spoke with Dr. Lechuga, sandwich wrapper. We discussed the patient's case. She recommended continued outpatient management. 1855: I reassessed the patient at this time. She is feeling better and resting comfortably. I discussed the results and treatment plan with the patient. I answered all pertaining questions that she had. She expressed understanding and verbalized agreement. The patient will be discharged home. Medical Decision Prior records/ancillary studies reviewed. Triage Nursing notes reviewed. Differential diagnosis: Etiologies such as appendicitis, diverticulitis, PUD, biliary pathology, UTI, pancreatitis, obstruction, mesenteric ischemia, aortic pathology, infections, inflammatory bowel disease, renal colic, as well as others were entertained. The patient is a 32-year-old female who presented to the emergency department for an evaluation of upper abdominal pain. The patient recently had an ERCP for choledocholithiasis and retained ductal stones from a previous cholecystectomy. The patient's primary care physician saw her today and sent her to the emergency department for further evaluation. Patient was treated with IV fluids IV pain medicine and IV anti-medics. On subsequent reevaluation she was feeling much better. I discussed patient's laboratory and radiographic studies with her and I also discussed her case with the covering gastroneurologist. At this time I recommended that she follow-up with the sandwich wrapper as an outpatient. She was encouraged to continue all medications as prescribed and drink plenty clear liquids. Otherwise she was encouraged to return the emergency department immediately if she develop any worsening symptoms such as high fever rigid abdomen severe nausea vomiting or if need arises. Medication Reconcilliation Current Medication List: was personally reviewed by me Blood Pressure Screening Patient's blood pressure: Elevated blood pressure Blood pressure disposition: Elevated BP felt to be situational Consults Time Called: 1829 Consulting Physician: Dr. Lechuga, sandwich wrapper Returned Call: [address] Lechuga, sandwich wrapper. We discussed the patient's case. She recommended continued outpatient management. Impression Primary Impression: Epigastric abdominal pain Additional Impression: S/P ERCP Scribe Attestation The scribe's documentation has been prepared under my direction and personally reviewed by me in its entirety. I confirm that the note above accurately reflects all work, treatment, procedures, and medical decision making performed by me. Departure Information Dispostion Home / Self-Care Prescriptions Polyethylene Glycol 3350 (MIRALAX) 1 Pow Pow 17 GM PO DAILY, #527 GM Prov: Aidan Chung, DO 06/13/17 Ondasetron Odt (ZOFRAN ODT) 4 Mg Tab 4 MG SL Q6H for Nausea, #15 TAB Prov: Aidan Chung, DO 06/13/17 Oxycodone Immediate Rel Tab (ROXICODONE IR) 5 Mg Tab 1-2 TAB PO Q4H Y for Severe Pain, #24 TAB Prov: Aidan Chung, 06/13/17 Referrals Oneyda Cadena D.O. (PCP) Forms HOME CARE DOCUMENTATION FORM, IMPORTANT VISIT INFORMATION, WORK / SCHOOL INSTRUCTIONS Patient Instructions Abdominal Pain, My [employer] Additional Instructions Continue all medications as prescribed. Drink plenty clear liquids. Follow-up with your doctor tomorrow as scheduled. Return to the emergency department immediately if symptoms change worsen or the need arises. Problem Qualifiers
[2017-06-13] MEDS: MoRPHine SULFATE 4 MG/ML 1 ML CARP\\VIAL IV PRN ×2 (18:00→18:38)
--- NOTE | 2017-06-13 18:11 | DIAGNOSTIC IMAGING REPORT ---
CHEST ONE VIEW PORTABLE CLINICAL HISTORY: 32 years-old Female presenting with upper abd pain, S/P ERCP. TECHNIQUE: Portable upright AP view of the chest was obtained. COMPARISON: 02/25/2017. FINDINGS: Cardiomediastinal silhouette normal. No focal opacity. No large effusion or pneumothorax. Osseous structures normal. Upper abdomen normal. IMPRESSION: 1. No acute cardiopulmonary disease. No free air. Electronically signed by: [place] Grady M.D. 06/13/2017 6:10 PM Dictated Date/Time: 06/13/2017 6:09 PM
[2017-06-13 18:14] LABS: BASO % 0.4 %; BASO ABS # 0.04 K/uL (0-0.2); EOS ABS # 0.29 K/uL (0-0.5); HEMATOCRIT 44.6 % (37-47); HEMOGLOBIN 15.9 g/dL (12.0-16.0); IG# 0.08 K/uL (0.00-0.02); LYMPH % 31.7 %; LYMPH ABS # 3.03 K/uL (1.2-3.4); MEAN CELL VOLUME 84.2 fL (80-100); MEAN CORPUSCULAR HGB CONC 35.7 g/dl (32-36); MEAN PLATELET VOLUME 10.3 fL (7.4-10.4); MONO % 5.3 %; MONO ABS # 0.51 K/uL (0.11-0.59); NEUT % 58.8 %; NEUT ABS # 5.62 K/uL (1.4-6.5); PLATELET COUNT 294 K/uL (130-400); RED CELL DISTRIBUTION WIDTH CV 11.7 % (11.5-14.5); RED CELL DISTRIBUTION WIDTH SD 35.9 fL (36.4-46.3); WHITE BLOOD COUNT 9.57 K/uL (4.8-10.8)
[2017-06-13 18:32] LABS: ALBUMIN 4.1 gm/dl (3.4-5.0); ALT/SGPT 60 U/L (12-78); AST/SGOT 20 U/L (15-37); BLOOD UREA NITROGEN 16 mg/dl (7-18); CARBON DIOXIDE 28 mmol/L (21-32); CREATININE 0.91 mg/dl (0.60-1.20); GLUCOSE 86 mg/dl (70-99); LIPASE 153 U/L (73-393); POTASSIUM 4.2 mmol/L (3.5-5.1); SODIUM 136 mmol/L (136-145)
[2017-06-13 18:34] LABS: ALKALINE PHOSPHATASE 104 U/L (45-117); TOTAL PROTEIN 8.2 gm/dl (6.4-8.2)
[2017-06-13 18:40] VITALS: BP 102/58; PULSE 73; O2SAT 97
[2017-06-13] MEDS ORDERED: OXYC1TAB3 PO (18:58)
[2017-06-13] MEDS ORDERED: POLY335019 PO (18:58)
[2017-06-13] MEDS ORDERED: ONDA4TAB10 SL (18:58)
== END 2017-06-13 19:16 | disposition home or self-care (01) ==
LOC: C.EDB 17:15 → C.EDC 19:16
DX: R10.10 Upper abdominal pain, unspecified (principal); R03.0 Elevated blood-pressure reading, without diagnosis of hypertension; R11.0 Nausea; R50.9 Fever, unspecified; Z90.49 Acquired absence of other specified parts of digestive tract; Z79.899 Other long term (current) drug therapy; F41.9 Anxiety disorder, unspecified; Z91.018 Allergy to other foods; Z88.8 Allergy status to other drugs, medicaments and biological substances; Z88.2 Allergy status to sulfonamides; Z88.0 Allergy status to penicillin